=== PATIENT | male | born 1980 | race Caucasian/White ===

== ENCOUNTER 2019-08-24 01:08 | Inpatient (IN) ==
[2019-08-24] MEDS ORDERED: NALOXONE HCL 0.4 MG/ML VIAL IV PRN (01:18)
[2019-08-24] MEDS ORDERED: 0.9 % SODIUM CHLORIDE 1,000 ML IV ONE ×2 (01:19→02:31)
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
[2019-08-24 02:30] LABS: Basophils # (Auto) 0.06 K/mcL (0.00-0.30); Basophils % (Auto) 0.7 % (0.0-2.0); Eosinophils % (Auto) 2.5 % (0.0-7.0); Granulocytes % (Auto) 77.2 % (38.0-78.0); Hematocrit 37.2 % (40.1-51.0); Hemoglobin 12.8 g/dL (13.7-17.5); Lymphocytes # (Auto) 0.91 K/mcL (1.50-4.80); Lymphocytes % (Auto) 11.3 % (15.5-49.0); Mean Cell Volume 89.2 fL (80.0-100.0); Mean Corpuscular HGB Conc 34.4 g/dL (31.0-36.0); Mean Platelet Volume 9.3 fL (7.4-10.4); Monocytes # (Auto) 0.67 K/mcL (0.10-0.90); Monocytes % (Auto) 8.3 % (1.0-12.0); Platelet Count 164 K/mcL (140-440); RBC 4.17 M/mcL (4.63-6.08); Red Cell Distribution Width 12.5 % (11.5-14.5); WBC 8.1 K/mcL (4.50-11.00)
[2019-08-24 02:37] LABS: Alcohol, Blood < 10.0 mg/dL (<10); Alcohol,Blood < 0.010 gm/dl (<0.010)
[2019-08-24] MEDS ORDERED: DEXTROSE 50% 50 ML SYRINGE IV ONE (02:40)
[2019-08-24 02:42] LABS: ALT/SGPT 25 U/l (0-40); AST/SGOT 30 U/l (0-37); Albumin 3.7 gm/dL (3.2-5.2); Albumin/Globulin Ratio 1.3 (1.0-2.3); Alkaline Phosphatase 91 U/L (39-117); Bilirubin,Total 0.4 mg/dL (0.0-1.0); Blood Urea Nitrogen 11 mg/dl (6-20); Calcium 8.7 mg/dl (8.6-10.4); Carbon Dioxide 22 mmol/L (22-30); Chloride 101 mmol/L (96-108); Globulin 2.9 gm/dL (2.2-3.7); Glomerular Filtration Rate 117; Glucose 86 mg/dL (70-105)
[2019-08-24] MEDS ORDERED: DEXTROSE 10 % IN WATER 1,000 ML IV ONE (03:28)
[2019-08-24 04:32] LABS: Amphetamine Screen,Urine SUSPECT POSITIVE (NONDETECTED); Barbiturate Screen,Urine NONE DETECTED (NONDETECTED); Benzodiazepines Screen,Urine NONE DETECTED (NONDETECTED); Cannabinoid Screen,Urine SUSPECT POSITIVE (NONDETECTED); Cocaine Screen,Urine NONE DETECTED (NONDETECTED); Opiate Screen,Urine NONE DETECTED (NONDETECTED); Oxycodone, Urine Screen NONE DETECTED (NONDETECTED); Phencyclidine Screen,Urine NONE DETECTED (NONDETECTED)
[2019-08-24] MEDS ORDERED: HYDROCORTISONE SOD SUCC 100 MG VIAL IV ONE (07:12)
[2019-08-24] MEDS ORDERED: THIAMINE 100 MG in 0.9 % SODIUM CHLORIDE 50 ML IV ONE (07:24)
[2019-08-24 07:28] LABS: ALT/SGPT 31 U/l (0-40); AST/SGOT 39 U/l (0-37); Albumin 3.6 gm/dL (3.2-5.2); Albumin/Globulin Ratio 1.5 (1.0-2.3); Alkaline Phosphatase 98 U/L (39-117); Bilirubin,Total 0.6 mg/dL (0.0-1.0); Blood Urea Nitrogen 10 mg/dl (6-20); Calcium 8.3 mg/dl (8.6-10.4); Carbon Dioxide 22 mmol/L (22-30); Chloride 103 mmol/L (96-108); Creatine Kinase 272 IU/L (24-195); Globulin 2.4 gm/dL (2.2-3.7); Glomerular Filtration Rate 117; Glucose 179 mg/dL (70-105)
[2019-08-24] MEDS ORDERED: LACTATED RINGERS 1,000 ML IV ONE (07:30)
[2019-08-24] MEDS ORDERED: THIAMINE 100 MG/ML VIAL ONE (07:57)
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
--- NOTE | 2019-08-24 08:48 | Cat Scan Report ---
CLINICAL INFORMATION: Obtundation COMPARISON: None. TECHNIQUE: 2.5 mm helical slices were obtained in the skull base to vertex. Following reconstruction, axial reformatted images were reviewed at bone and parenchymal windows. The exam was performed using radiation dose optimization techniques including, but not limited to, automated exposure control, adjustment of the mA and/or kV according to patient size and use of iterative reconstruction technique. FINDINGS: The ventricles, sulci, fissures, and cisterns are normal in size and configuration. No extra-axial fluid collections are identified. The cerebrum, brainstem and cerebellum are unremarkable. There is no evidence of hemorrhage, mass effect, or edema. Bone windows show no osseous abnormality. IMPRESSION: Normal head CT without contrast. Interpreted and Authenticated by: Aristides Berumen 08/24/19
[2019-08-24] MEDS ORDERED: ONDANSETRON 4 MG ODT TABLET SL PRN (10:40)
[2019-08-24] MEDS ORDERED: POLYETHYLENE GLYCOL 3350 17 GM PACKET PO PRN (10:40)
[2019-08-24] MEDS ORDERED: ACETAMINOPHEN 325 MG TABLET PO PRN (10:40)
[2019-08-24] MEDS ORDERED: DEXTROSE 31 GM ORAL.SUSP PO PRN (10:40)
[2019-08-24] MEDS ORDERED: POTASSIUM CHLORIDE 20 MEQ PACKET PO PRN (10:40)
[2019-08-24] MEDS ORDERED: ACETAMINOPHEN 650 MG/65 ML BOTTLE IV PRN (10:40)
[2019-08-24] MEDS ORDERED: ONDANSETRON 4 MG/2 ML VIAL IV PRN (10:40)
[2019-08-24] MEDS ORDERED: MAGNESIUM SULFATE 2 GM/50 ML BAG IV PRN (10:40)
[2019-08-24] MEDS ORDERED: MELATONIN 3 MG TABLET PO PRN (10:40)
[2019-08-24] MEDS ORDERED: DEXTROSE 50% 50 ML VIAL IV PRN (10:40)
[2019-08-24] MEDS ORDERED: BISACODYL 10 MG SUPP.RECT PR PRN (10:40)
[2019-08-24] MEDS ORDERED: NOREPINEPHRINE BITARTRATE 16 MG in 0.9 % SODIUM CHLORIDE 234 ML IV PRN (10:40)
[2019-08-24] MEDS: DEXTROSE 5%-1/2NS 1,000 ML IV SCH ×3 (10:49→20:28)
[2019-08-24] MEDS: MULTIVIT,THER IRON,CA,FA & MIN 1 TABLET PO SCH (12:11)
[2019-08-24] MEDS: THIAMINE 100 MG TABLET PO SCH (12:11)
[2019-08-24] MEDS: CYANOCOBALAMIN (VITAMIN B-12) 500 MCG TABLET PO SCH ×2 (12:11→20:29)
[2019-08-24] MEDS: HEPARIN 5,000 UNIT/ML VIAL SQ SCH ×2 (12:11→20:28)
[2019-08-24] MEDS: FOLIC ACID 1 MG TABLET PO SCH (12:11)
[2019-08-24] MEDS: DOCUSATE SODIUM 100 MG CAPSULE PO SCH ×2 (12:12→20:29)
[2019-08-24] MEDS: INSULIN LISPRO 1 UNIT/0.01 ML UNIT SQ SCH ×3 (12:12→20:32)
--- NOTE | 2019-08-24 12:29 | Cat Scan Report ---
CLINICAL INFORMATION: Altered level of consciousness and chest pain COMPARISON: None. TECHNIQUE: 80 cc of Isovue-[id number] were injected intravenously, and 25 seconds later, 0.625 mm helical slices were obtained from the lung apices through the bases. Following reconstruction, 2.5 mm sagittal, coronal and axial reformations were processed and reviewed at lung, mediastinal and bone windows. 7 mm axial MIPS were also obtained to optimize pulmonary nodule detection. The exam was performed using radiation dose optimization techniques including, but not limited to, automated exposure control, adjustment of the mA and/or kV according to patient size and use of iterative reconstruction technique. FINDINGS: Pulmonary parenchymal windows show scattered small groundglass infiltrates in the anterior segment of the left upper lobe. Minimal scattered scarring and/or atelectasis noted in both posterior lower lobes. There are no effusions. The mediastinal windows of the pulmonary arteries are well opacified without evidence of embolus. Thoracic aorta contains scattered atherosclerotic plaque in the descending segment but is normal diameter. Esophagus grossly normal. There is no adenopathy in the mediastinal, hilar or axillary regions. Thyroid is unremarkable. Bones and soft tissue chest wall are within normal limits. Images of the superior abdomen show no abnormality IMPRESSION: 1. No evidence of pulmonary embolus. 2. Small patchy groundglass infiltrates the anterior segment left upper lobe suspected to be acquired pneumonia. Interpreted and Authenticated by: Aristides Berumen 08/24/19
[2019-08-24] MEDS: 0.9 % SODIUM CHLORIDE 10 ML SYRINGE IV SCH ×2 (14:27→21:46)
[2019-08-24] MEDS ORDERED: IBUPROFEN 600 MG TABLET PO PRN (20:12)
[2019-08-24] MEDS ORDERED: SENNOSIDES/DOCUSATE SODIUM 1 TAB TABLET PO SCH (21:00)
[2019-08-25] MEDS: DEXTROSE 5%-1/2NS 1,000 ML IV SCH (00:31)
[2019-08-25] MEDS: 0.9 % SODIUM CHLORIDE 10 ML SYRINGE IV SCH ×2 (05:11→12:10)
[2019-08-25 08:04] LABS: Hematocrit 38.9 % (40.1-51.0); Hemoglobin 12.8 g/dL (13.7-17.5); Mean Cell Volume 93.7 fL (80.0-100.0); Mean Corpuscular HGB Conc 32.9 g/dL (31.0-36.0); Mean Platelet Volume 9.7 fL (7.4-10.4); Platelet Count 176 K/mcL (140-440); RBC 4.15 M/mcL (4.63-6.08); Red Cell Distribution Width 12.7 % (11.5-14.5); WBC 5.6 K/mcL (4.50-11.00)
[2019-08-25 08:28] LABS: ALT/SGPT 26 U/l (0-40); AST/SGOT 26 U/l (0-37); Albumin 3.2 gm/dL (3.2-5.2); Albumin/Globulin Ratio 1.3 (1.0-2.3); Alkaline Phosphatase 83 U/L (39-117); Bilirubin,Direct < 0.2 mg/dL (0.0-0.3); Bilirubin,Total 0.3 mg/dL (0.0-1.0); Blood Urea Nitrogen 8 mg/dl (6-20); Calcium 8.5 mg/dl (8.6-10.4); Carbon Dioxide 22 mmol/L (22-30); Chloride 105 mmol/L (96-108); Globulin 2.4 gm/dL (2.2-3.7); Glomerular Filtration Rate 111; Glucose 197 mg/dL (70-105); Lactate Dehydrogenase 186 U/L (94-250); Phosphorous 2.8 mg/dL (2.7-4.5); Triglycerides 109 mg/dl (<150); Uric Acid 3.7 mg/dL (2.5-8.0)
[2019-08-25 08:36] LABS: Band Neutrophils % 1 % (0-10); Eosinophils % (Manual) 3 % (0-7); Lymphocytes % 45 % (15-49); Monocytes % (Manual) 8 % (1-12); Platelet Estimate NORMAL (NORMAL); RBC Morphology NORMAL (NORMAL); Segmented Neutrophils % 43 % (38-78)
[2019-08-25] MEDS ORDERED: LEVOFLOXACIN 750 MG/150 ML BAG IV SCH (09:00)
[2019-08-25] MEDS: INSULIN LISPRO 1 UNIT/0.01 ML UNIT SQ SCH ×2 (09:09→12:48)
[2019-08-25] MEDS: HEPARIN 5,000 UNIT/ML VIAL SQ SCH (09:13)
[2019-08-25] MEDS: MULTIVIT,THER IRON,CA,FA & MIN 1 TABLET PO SCH (09:14)
[2019-08-25] MEDS: DOCUSATE SODIUM 100 MG CAPSULE PO SCH (09:14)
[2019-08-25] MEDS: FOLIC ACID 1 MG TABLET PO SCH (09:14)
[2019-08-25] MEDS: THIAMINE 100 MG TABLET PO SCH (09:14)
[2019-08-25] MEDS: CYANOCOBALAMIN (VITAMIN B-12) 500 MCG TABLET PO SCH (09:14)
--- NOTE | 2019-08-25 09:21 | Discharge Summary ---
Medical - DS: Prov Patient information: Note initiated : 08/25/19 at 9:17 am Service Date, if different from initiated Date: [] Patient: Scot Winchester 39 y/o M admitted on 08/24/19 for Altered LOC. Chief Complaint: [] Date of admission: 08/24/19 10:32 Discharge date: 08/25/19 Consults: 08/24/19 07:03 Consult to Physician [CONS] Stat Comment: Consulting Provider: Socrates Galvan Reason For Exam: Physician to Consult Medical - DS: Meds - Discharge Medications Active and Home Medications: Home Medications Cephalexin [Keflex] 500 mg PO QID #30 cap 08/23/19 [Rx Confirmed 08/24/19 Last Taken Unknown] Insulin Lispro [Humalog] 0 unit SQ ACHS 08/23/19 [History Confirmed 08/24/19 Last Taken Unknown] Lantus 20 unit SQ BID 08/23/19 [History Confirmed 08/24/19 Last Taken Unknown] Sulfamethoxazole/Trimethoprim [Bactrim Ds] 1 tab PO BID #14 tab 08/23/19 [Rx Confirmed 08/24/19 Last Taken Unknown] Medical - DS: Hosp Hospital Course: Discharge diagnosis * Hypothermia secondary to exposure. Clinically improved with active rewarming. Euthermic now. Status post steroids/sepsis work-up/antibiotic coverage, aggressive electrolyte management and close hemodynamic monitoring in ICU. Patient back at baseline and discharging * Axillary abscess staph aureus on culture. CT chest no evidence of abscess. Continue Keflex/Bactrim * Right upper lobe infiltrate likely aspiration chemical pneumonitis. No indication for antibiotics in light of normal white count and absence of systemic signs * Costochondritis as needed NSAIDs * Acute change mental status-CT head negative. Secondary to amphetamine intoxication and hypothermia. Clinically resolved now mentation at baseline * Hypokalemia-resolved with active rewarming * Type 1 diabetes-continue home diabetic regimen Brief hospital course Mr. Winchester is a 39 year old M with a known history of type 1 diabetes and drug use who was found unresponsive and hypothermic out in snow. His initial core body temperature was less than 90. Patient was started on active rewarming while further investigations were carried out in the ER. Over the period of 5 hours patient's temperature megan to 93. Patient was unresponsive and exact circumstances of patient being found down were unknown. History is obtained from EMS. Significant to presenting history patient earlier in the morning presented with left axillary abscess and was discharged on antibiotics after the abscess spontaneously drained. Later in the evening patient was at a hotel with friend and was walking to his home when he collapsed under unclear circumstances. No further history is available. Initial tox screen positive for amphetamine, ABG 7.41/30 , potassium 3. Hospitalist service was consulted for for management of hypothermia/active rewarming. During my evaluation patient remains minimally responsive. He would answer to occasional questions. History is obtained from ER records/EMS notes. 08/25-patient responded to active rewarming and currently euthermic. Labs hemodynamic stable. CT chest unremarkable except for right upper lobe infiltrates consistent with aspiration however no indication of systemic signs precluding antibiotic use. No further drainage from left axillary abscess. No evidence of drainable abscess on CT. Will continue Keflex/Septra for additional 5 to 7 days. Discharge instructions as below Discharge diagnosis: . - Time Spent with Patient Total time spent providing and/or coordinating discharge services: Greater than 30 minutes Medical - DS: Exam - Constitutional Vitals: Vital Signs Temp Pulse Resp BP BP Pulse Ox 08/25/19 08:50 97.6 F 08/25/19 08:46 97.5 F 16 118/83 08/25/19 08:31 97.4 F 60 121/79 100 08/25/19 08:16 97.4 F 80 113/70 99 08/25/19 08:01 97.3 F 119/83 08/25/19 07:46 97.2 F 124/86 08/25/19 07:31 97.2 F 114/75 08/25/19 07:16 97.2 F 118/83 08/25/19 07:01 97.2 F 126/81 08/25/19 06:46 97.3 F 118/74 08/25/19 06:31 97.4 F 111/73 08/25/19 06:16 97.3 F 115/79 08/25/19 06:01 97.1 F 143/103 08/25/19 05:46 97.1 F 123/86 08/25/19 05:31 96.9 F L 143/88 08/25/19 05:16 96.7 F L 124/80 08/25/19 05:01 96.7 F L 115/74 08/25/19 04:46 96.7 F L 60 120/67 99 08/25/19 04:31 96.6 F L 60 106/83 98 08/25/19 04:16 96.5 F L 77 121/79 97 08/25/19 04:07 96.6 F L 68 95 08/25/19 04:01 96.6 F L 59 L 18 112/81 95 08/25/19 03:46 96.6 F L 104/71 08/25/19 03:31 96.7 F L 100/68 08/25/19 03:16 96.7 F L 100/67 08/25/19 03:01 96.7 F L 110/67 08/25/19 02:46 96.7 F L 112/63 08/25/19 02:39 100 08/25/19 02:31 96.7 F L 68 98/72 100 08/25/19 02:16 96.8 F L 63 102/63 99 08/25/19 02:01 96.9 F L 67 93/66 97 08/25/19 01:46 96.9 F L 62 91/68 100 08/25/19 01:31 97.0 F 59 L 106/72 94 08/25/19 01:16 97.0 F 112/72 08/25/19 01:01 97.0 F 72 97/61 100 08/25/19 00:46 97.0 F 76 106/65 100 08/25/19 00:31 97.1 F 63 119/68 97 08/25/19 00:16 97.1 F 71 16 110/72 100 08/25/19 00:01 97.2 F 63 107/69 100 08/24/19 23:46 97.2 F 103/62 08/24/19 23:31 97.2 F 130/70 08/24/19 23:16 97.2 F 120/70 08/24/19 23:01 96.6 F L 74 120/73 100 08/24/19 22:46 97.4 F 102/61 08/24/19 22:31 97.5 F 105/62 08/24/19 22:16 97.6 F 102/56 08/24/19 22:01 97.7 F 109/58 08/24/19 21:46 97.8 F 85 113/68 99 08/24/19 21:31 97.8 F 75 123/65 99 08/24/19 21:16 97.9 F 90 112/62 100 08/24/19 21:01 98.1 F 82 107/66 98 08/24/19 20:50 98.1 F 80 104/68 99 08/24/19 20:34 98.2 F 80 129/107 98 08/24/19 20:01 98.3 F 119/73 08/24/19 19:46 98.3 F 125/81 08/24/19 19:41 98 08/24/19 19:31 98.2 F 120/75 08/24/19 19:16 98.1 F 91 H 124/71 100 08/24/19 19:01 98.0 F 89 124/73 97 08/24/19 18:46 97.8 F 94 H 120/79 100 08/24/19 18:31 97.6 F 91 H 128/76 100 08/24/19 18:16 97.4 F 125/87 08/24/19 18:01 97.3 F 128/74 08/24/19 16:25 97.1 F 79 20 105/62 97 08/24/19 16:16 97.0 F 80 103/59 98 08/24/19 16:01 96.9 F L 105/62 08/24/19 15:46 96.8 F L 116/73 08/24/19 15:31 96.7 F L 92/68 08/24/19 15:16 96.7 F L 105/72 08/24/19 15:01 96.8 F L 20 104/66 98 08/24/19 14:46 96.9 F L 107/63 08/24/19 14:31 97.1 F 111/59 08/24/19 14:20 97.1 F 91/72 08/24/19 14:18 97.1 F 109/63 08/24/19 13:01 97.1 F 128/87 08/24/19 12:56 97.1 F 87 129/68 96 08/24/19 10:41 96.2 F L 74 12 112/77 99 08/24/19 10:32 97.1 F 20 119/65 97 08/24/19 10:16 96.2 F L 74 12 112/77 99 08/24/19 10:01 96.3 F L 74 12 111/76 97 08/24/19 09:46 96.2 F L 75 21 119/86 96 08/24/19 09:31 96.1 F L 70 11 L 122/88 100 Intake and Output 08/24/19 08/25/19 08/25/19 21:59 05:59 13:59 Intake Total 1545 2400 Output Total 575 Balance 1545 1825 [place]: IV 1065 2000 Dextrose 10%-Water IV Solution 1000 1,000 ml @ 75 mls/hr IV . [id number] Rx#:[id number] Dextrose 5%-1/2Ns IV Solution 1 1000 1000 ,000 ml @ 150 mls/hr IV .[id number] [facility] Rx#:[id number] Oral 480 400 Output: Urine Catheter Amount 575 Other: Meal Dinner Percent of Meal Consumed 100% Feeding Ability Independent Urine Appearance Uretheral (Cross) Clear Clear Urine Color Uretheral (Cross) Dark Yellow Straw Straw Weight 214 lb 4.8 oz Medical - DS: Data Labs on day of discharge: Labs from last 24 hours 08/25/19 08/25/19 05:46 05:46 WBC 5.6 RBC 4.15 L Hgb 12.8 L Hct 38.9 L MCV 93.7 MCH 30.8 MCHC 32.9 RDW 12.7 Plt Count 176 MPV 9.7 Total Counted 100 Seg Neutrophils % 43 Band Neutrophils % 1 Lymphocytes % 45 Monocytes % (Manual) 8 Eosinophils % (Manual) 3 Platelet Estimate Normal RBC Morphology Normal Sodium 138 Potassium 4.0 Chloride 105 Carbon Dioxide 22 Anion Gap 11.0 BUN 8 Creatinine 0.8 GFR Calculation 111 Glucose 197 H Uric Acid 3.7 Calcium 8.5 L Phosphorus 2.8 Magnesium 1.9 Total Bilirubin 0.3 Direct Bilirubin < 0.2 GGT 64 H AST 26 ALT 26 Alkaline Phosphatase 83 Lactate Dehydrogenase 186 Total Protein 5.6 L Albumin 3.2 Globulin 2.4 Albumin/Globulin Ratio 1.3 Triglycerides 109 Medical - DS: A/P - Patient/Caregiver Discharge Instructions Activity: increase activity as tolerated Diet: Consistent Carbohydrate Additional Instructions: Refrain from substance abuse Continue antibiotic for 7 days Follow primary care physician 5 to 7 days - Follow up Plan Disposition: Home, Self-Care Prognosis: Fair Rehab Potential: Fair I certify that the patient requires SNF services: No Overall status at discharge: patient is progressing back to baseline Medical - DS: Qual - VTE Deep Vein Thrombosis/Pulmonary Embolism Present on Admission: No
[2019-08-28 11:17] LABS: Cannabinoid Confirmation POSITIVE (N)
== END 2019-08-25 13:47 | disposition home or self-care (01) | DRG 922 ==
LOC: ED 01:08 → ICU 10:32
PROVIDERS: ADMIT Internal Medicine; ATTEND Internal Medicine

== ENCOUNTER 2020-12-01 22:00 | Inpatient (IN) ==
--- NOTE | 2020-12-01 22:20 | Emergency Department Note ---
Back Pain HPI General Chief Complaint: Back Pain/Injury Stated Complaint: back pain Time Seen by Provider: 12/01/20 22:12 Source: patient Limitations: no limitations History of Present Illness HPI Narrative: Narrative: Patient is a 40-year-old male who is a type 1 insulin-dependent diabetic presents with hyperglycemia, dehydration, dysuria, flank pain and also right shoulder pain. He denies any history of IV drug abuse. Patient denies any fevers but reports that overall he is having dysuria and right sided flank pain. Patient denies any midline back pain, denies any bowel dysfunction. Patient reports some redness to his Penis. Denies any testicular pain. Patient denies any other complaints. Related Data Home Medications Medication Instructions Recorded Confirmed No Known Home Meds 11/30/20 12/01/20 Allergies Allergy/AdvReac Type Severity Reaction Status Date / Time No Known Drug Allergies Allergy Unknown Verified 11/30/20 16:53 [NO KNOWN DRUG ALLERGIES] Review of Systems ROS ROS Narrative: Narrative: All systems ED: reviewed and negative except as stated. PFSH Narrative Patient History Narrative: Narrative: Medical/Surgical/Family History All Active Problems Acute shoulder pain (Acute) Uncontrolled type I diabetes mellitus (Acute) Acute hyponatremia (Acute) Balanitis (Acute) Flank pain (Acute) Hypothermia (Acute) Hypoglycemia (Acute) Hypokalemia (Acute) Obtundation (Acute) Anemia (Acute) Diabetes mellitus type 1 (Chronic) Abscess of skin or subcutaneous tissue (Acute) Costochondritis (Acute) Medical History Diabetes mellitus type 1 Flank pain Lumbar radiculopathy Social History Smoking Status: Current every day smoker Exam Narrative Narrative: Narrative: General Limitations: no limitations General appearance: Present alert and other (ill appearing, non toxic and non septic appearing) Head Head: Present atraumatic and normocephalic Eye Eye: Present normal appearance, PERRL and EOMI ENT ENT: Present normal exam, normal oropharynx and mucous membranes moist Neck Neck: Present normal inspection, full ROM and trachea midline Chest Chest: Present normal inspection and symmetric chest wall rise Respiratory Respiratory: Present normal lung sounds bilaterally Cardiovascular Cardiovascular: Present normal rhythm and tachycardia Adbominal Abdominal: Present soft, tenderness and normal bowel sounds; Absent guarding, rebound and organomegaly Expanded : Present erythema, balanitis and other (Erythema, no purulent discharge testicles descended bilaterally, nontender, no crepitus no signs of Heraclio's gangrene. No inguinal lymphadenopathy no hernias appreciated no vesicles, no lesions no ulcers) Extremities Extremities: Present normal inspection and full ROM; Absent tenderness Back Back: Present normal inspection, full ROM, CVA tenderness (R) and other (No midline tenderness of the CTLS spine. No midline erythema of the midline CTLS spine. ) Neurological Neurological: Present alert, oriented X3, CN II-XII intact, normal gait, motor sensory deficit and reflexes normal Psychiatric Psychiatric: Present normal affect Skin Skin: Present warm (WNL); Absent rash Course Course Course Narrative: Preliminary interpretation of x-ray of the right shoulder shows no acute process. Final interpretation per radiology. CT scan of the abdomen pelvis shows no acute process. CT scan abdomen pelvis shows some mild bladder wall thickening possibly cystitis. Otherwise there is also some nonobstructing renal calculi. EKG shows no STEMI. The patient is noted to be hyperglycemic but not acidotic, pseudohyponatremia present as well. Corrected sodium is around 130. I spoke with the hospitalist, Dr. Mckenzie who graciously agreed to accept this patient. Basic facilitated admission orders placed as requested by hospitalist. Patient updated and agreeable to admission. Vital Signs Vital signs: Vital Signs Temperature 99.0 F 12/01/20 22:00 Pulse Rate 122 H 12/01/20 22:00 Respiratory Rate 18 12/01/20 22:00 Blood Pressure 162/109 12/01/20 22:00 Pulse Oximetry (%) 91 12/01/20 22:00 Temperature 99.9 F H 12/02/20 01:08 Pulse Rate 117 H 12/02/20 01:08 Respiratory Rate 20 12/02/20 01:08 Blood Pressure 153/82 12/02/20 01:08 Pulse Oximetry (%) 96 12/02/20 01:08 MDM MDM Narrative Medical decision making narrative: Narrative: Also in the DDX is epidural abscess, septic joint, there is no midline ttp, denies IVDA, no leukocytosis, afebrile. Preliminary interpretation of x-ray of the right shoulder shows no acute process. Final interpretation per radiology. CT scan of the abdomen pelvis shows no acute process. CT scan abdomen pelvis shows some mild bladder wall thickening possibly cystitis. Otherwise there is also some nonobstructing renal calculi. EKG shows no STEMI. Unable to get MRI in the emergency department. The patient is noted to be hyperglycemic but not acidotic it is pseudohyponatremia as well. Corrected sodium is around 130. I spoke with the hospitalist, Dr. Mckenzie who graciously agreed to accept this patient.Given the patient's history he was treated with 2 L of IV fluids as well as empirically with 2 g of IV Rocephin and 10 Units of regular insulin. Lab Data Result diagrams: 12/01/20 22:46 12/01/20 22:46 Labs: Lab Results 12/01/20 12/01/20 12/01/20 Range/Units 22:46 22:46 22:46 WBC 10.5 (4.5-11.0) K/mcL RBC 4.74 (4.50-5.90) M/mcL Hgb 14.7 (13.5-16.5) g/dL Hct 43.3 (41.0-55.0) % MCV 91.4 (80.0-100.0) fL MCH 31.0 (26.0-34.0) pg MCHC 33.9 (31.0-36.0) g/dL RDW 11.6 (11.5-14.5) % Plt Count 168 (140-440) K/mcL MPV 10.0 (7.4-10.4) fL Neut % (Auto) 81.9 H (38.0-78.0) % Lymph % (Auto) 10.3 L (15.0-49.0) % Wilkinson % (Auto) 6.5 (1.0-12.0) % Eos % (Auto) 0.8 (0.0-7.0) % Baso % (Auto) 0.5 (0.0-2.0) % Lymph # (Auto) 1.08 L (1.50-4.80) K/mcL Wilkinson # (Auto) 0.68 (0.10-0.90) K/mcL Eos # (Auto) 0.08 (0.00-0.70) K/mcL Baso # (Auto) 0.05 (0.00-0.20) K/mcL Absolute Neutrophils 8.61 H (1.80-8.00) K/mcL PT 15.2 H (11.9-14.5) sec INR 1.2 H (0.9-1.1) ABG Methemoglobin (0.4-1.5) % VBG pH (7.32-7.42) U VBG pCO2 (41.0-51.0) mmHg VBG pO2 (25.0-40.0) mmHg VBG HCO3 (24.0-28.0) mmol/L VBG Total CO2 (25.0-29.0) mmol/L VBG O2 Saturation (40.0-70.0) % VBG Base Excess (-2-3) VBG Lactic Acid (0.5-2.0) mmol/L Carboxyhemoglobin (0.0-1.5) % THgb Total Hemoglobin (13.5-16.5) gm/Dl Sodium 123 L (133-145) mmol/L Potassium 4.2 (3.3-5.1) mmol/L Chloride 84 L (96-108) mmol/L Carbon Dioxide 30 (22-30) mmol/L Anion Gap 9.0 (8.0-16.0) BUN 7 (6-20) mg/dL Creatinine 0.9 (0.7-1.2) mg/dL GFR Calculation 105 Glucose 518 H* (70-105) mg/dL Calcium 9.3 (8.6-10.4) mg/dL Phosphorus (2.5-4.5) mg/dL Magnesium 2.1 (1.6-2.5) mg/dL Total Bilirubin 1.0 (0.1-1.0) mg/dL AST 26 (<40) U/L ALT 54 H (<40) U/L Alkaline Phosphatase 163 H (39-117) U/L Troponin T (<0.03) ng/mL Total Protein 7.4 (5.9-8.4) gm/dL Albumin 3.7 (3.2-5.2) gm/dL Globulin 3.7 (2.2-3.7) gm/dL Albumin/Globulin Ratio 1.0 (1.0-2.3) Lipase 14 (7-60) U/L Beta-Hydroxybutyrate 0.66 H (<0.27) mmol/L Urine Color Urine Appearance (Clear) Urine pH (5.0-9.0) Ur Specific [place] (1.000-1.035) Urine Protein (Negative) mg/dL Urine Glucose (UA) (Negative) mg/dL Urine Ketones (Negative) mg/dL Urine Occult Blood (Negative) mg/dL Urine Nitrate (Negative) Urine Bilirubin (Negative) mg/dL Urine Urobilinogen mg/dL Ur Leukocyte Esterase (Negative) /ug Urine RBC (0-3) /hpf Urine WBC (0-4) /hpf Ur Squamous Epith Cells (0-4) /hpf Urine Bacteria (0) /hpf Ur Culture Indicated? Urine Opiates Screen Ur Opiates Confirm Ur Oxycodone Screen Urine Methadone Screen Ur Methadone Confirm Ur Barbiturates Screen Ur Barbiturate Confirm Ur Phencyclidine Scrn Urine PCP Confirm Ur Amphetamines Screen U Benzodiazepines Scrn U Benzodiazepine Confm Urine Cocaine Screen Urine Cocaine Confirm U Marijuana (THC) Screen Ethyl Alcohol (<0.010) gm/dL 12/01/20 12/01/20 12/01/20 Range/Units 22:46 22:46 22:46 WBC (4.5-11.0) K/mcL RBC (4.50-5.90) M/mcL Hgb (13.5-16.5) g/dL Hct (41.0-55.0) % MCV (80.0-100.0) fL MCH (26.0-34.0) pg MCHC (31.0-36.0) g/dL RDW (11.5-14.5) % Plt Count (140-440) K/mcL MPV (7.4-10.4) fL Neut % (Auto) (38.0-78.0) % Lymph % (Auto) (15.0-49.0) % Wilkinson % (Auto) (1.0-12.0) % Eos % (Auto) (0.0-7.0) % Baso % (Auto) (0.0-2.0) % Lymph # (Auto) (1.50-4.80) K/mcL Wilkinson # (Auto) (0.10-0.90) K/mcL Eos # (Auto) (0.00-0.70) K/mcL Baso # (Auto) (0.00-0.20) K/mcL Absolute Neutrophils (1.80-8.00) K/mcL PT (11.9-14.5) sec INR (0.9-1.1) ABG Methemoglobin 0.3 L (0.4-1.5) % VBG pH 7.44 H (7.32-7.42) U VBG pCO2 47.6 (41.0-51.0) mmHg VBG pO2 26.4 (25.0-40.0) mmHg VBG HCO3 31.4 H (24.0-28.0) mmol/L VBG Total CO2 32.8 H (25.0-29.0) mmol/L VBG O2 Saturation 49.6 (40.0-70.0) % VBG Base Excess 6 H (-2-3) VBG Lactic Acid (0.5-2.0) mmol/L Carboxyhemoglobin 7.8 H (0.0-1.5) % THgb Total Hemoglobin 14.8 (13.5-16.5) gm/Dl Sodium (133-145) mmol/L Potassium (3.3-5.1) mmol/L Chloride (96-108) mmol/L Carbon Dioxide (22-30) mmol/L Anion Gap (8.0-16.0) BUN (6-20) mg/dL Creatinine (0.7-1.2) mg/dL GFR Calculation Glucose (70-105) mg/dL Calcium (8.6-10.4) mg/dL Phosphorus 2.5 (2.5-4.5) mg/dL Magnesium (1.6-2.5) mg/dL Total Bilirubin (0.1-1.0) mg/dL AST (<40) U/L ALT (<40) U/L Alkaline Phosphatase (39-117) U/L Troponin T (<0.03) ng/mL Total Protein (5.9-8.4) gm/dL Albumin (3.2-5.2) gm/dL Globulin (2.2-3.7) gm/dL Albumin/Globulin Ratio (1.0-2.3) Lipase (7-60) U/L Beta-Hydroxybutyrate (<0.27) mmol/L Urine Color Urine Appearance (Clear) Urine pH (5.0-9.0) Ur Specific [place] (1.000-1.035) Urine Protein (Negative) mg/dL Urine Glucose (UA) (Negative) mg/dL Urine Ketones (Negative) mg/dL Urine Occult Blood (Negative) mg/dL Urine Nitrate (Negative) Urine Bilirubin (Negative) mg/dL Urine Urobilinogen mg/dL Ur Leukocyte Esterase (Negative) /ug Urine RBC (0-3) /hpf Urine WBC (0-4) /hpf Ur Squamous Epith Cells (0-4) /hpf Urine Bacteria (0) /hpf Ur Culture Indicated? Urine Opiates Screen None detected Ur Opiates Confirm TNP Ur Oxycodone Screen None detected Urine Methadone Screen None detected Ur Methadone Confirm TNP Ur Barbiturates Screen None detected Ur Barbiturate Confirm TNP Ur Phencyclidine Scrn None detected Urine PCP Confirm TNP Ur Amphetamines Screen Suspect positive A U Benzodiazepines Scrn None detected U Benzodiazepine Confm TNP Urine Cocaine Screen None detected Urine Cocaine Confirm TNP U Marijuana (THC) Screen Suspect positive A Ethyl Alcohol (<0.010) gm/dL 12/01/20 12/01/20 12/01/20 Range/Units 22:46 22:46 22:46 WBC (4.5-11.0) K/mcL RBC (4.50-5.90) M/mcL Hgb (13.5-16.5) g/dL Hct (41.0-55.0) % MCV (80.0-100.0) fL MCH (26.0-34.0) pg MCHC (31.0-36.0) g/dL RDW (11.5-14.5) % Plt Count (140-440) K/mcL MPV (7.4-10.4) fL Neut % (Auto) (38.0-78.0) % Lymph % (Auto) (15.0-49.0) % Wilkinson % (Auto) (1.0-12.0) % Eos % (Auto) (0.0-7.0) % Baso % (Auto) (0.0-2.0) % Lymph # (Auto) (1.50-4.80) K/mcL [place] # (Auto) (0.10-0.90) K/mcL Eos # (Auto) (0.00-0.70) K/mcL Baso # (Auto) (0.00-0.20) K/mcL Absolute Neutrophils (1.80-8.00) K/mcL PT (11.9-14.5) sec INR (0.9-1.1) ABG Methemoglobin (0.4-1.5) % VBG pH (7.32-7.42) U VBG pCO2 (41.0-51.0) mmHg VBG pO2 (25.0-40.0) mmHg VBG HCO3 (24.0-28.0) mmol/L VBG Total CO2 (25.0-29.0) mmol/L VBG O2 Saturation (40.0-70.0) % VBG Base Excess (-2-3) VBG Lactic Acid 1.7 (0.5-2.0) mmol/L Carboxyhemoglobin (0.0-1.5) % THgb Total Hemoglobin (13.5-16.5) gm/Dl Sodium (133-145) mmol/L Potassium (3.3-5.1) mmol/L Chloride (96-108) mmol/L Carbon Dioxide (22-30) mmol/L Anion Gap (8.0-16.0) BUN (6-20) mg/dL Creatinine (0.7-1.2) mg/dL GFR Calculation Glucose (70-105) mg/dL Calcium (8.6-10.4) mg/dL Phosphorus (2.5-4.5) mg/dL Magnesium (1.6-2.5) mg/dL Total Bilirubin (0.1-1.0) mg/dL AST (<40) U/L ALT (<40) U/L Alkaline Phosphatase (39-117) U/L Troponin T < 0.01 (<0.03) ng/mL Total Protein (5.9-8.4) gm/dL Albumin (3.2-5.2) gm/dL Globulin (2.2-3.7) gm/dL Albumin/Globulin Ratio (1.0-2.3) Lipase (7-60) U/L Beta-Hydroxybutyrate (<0.27) mmol/L Urine Color Urine Appearance (Clear) Urine pH (5.0-9.0) Ur Specific [place] (1.000-1.035) Urine Protein (Negative) mg/dL Urine Glucose (UA) (Negative) mg/dL Urine Ketones (Negative) mg/dL Urine Occult Blood (Negative) mg/dL Urine Nitrate (Negative) Urine Bilirubin (Negative) mg/dL Urine Urobilinogen mg/dL Ur Leukocyte Esterase (Negative) /ug Urine RBC (0-3) /hpf Urine WBC (0-4) /hpf Ur Squamous Epith Cells (0-4) /hpf Urine Bacteria (0) /hpf Ur Culture Indicated? Urine Opiates Screen Ur Opiates Confirm Ur Oxycodone Screen Urine Methadone Screen Ur Methadone Confirm Ur Barbiturates Screen Ur Barbiturate Confirm Ur Phencyclidine Scrn Urine PCP Confirm Ur Amphetamines Screen U Benzodiazepines Scrn U Benzodiazepine Confm Urine Cocaine Screen Urine Cocaine Confirm U Marijuana (THC) Screen Ethyl Alcohol < 0.010 (<0.010) gm/dL 12/01/20 Range/Units 22:46 WBC (4.5-11.0) K/mcL RBC (4.50-5.90) M/mcL Hgb (13.5-16.5) g/dL Hct (41.0-55.0) % MCV (80.0-100.0) fL MCH (26.0-34.0) pg MCHC (31.0-36.0) g/dL RDW (11.5-14.5) % Plt Count (140-440) K/mcL MPV (7.4-10.4) fL Neut % (Auto) (38.0-78.0) % Lymph % (Auto) (15.0-49.0) % [place] % (Auto) (1.0-12.0) % Eos % (Auto) (0.0-7.0) % Baso % (Auto) (0.0-2.0) % Lymph # (Auto) (1.50-4.80) K/mcL [place] # (Auto) (0.10-0.90) K/mcL Eos # (Auto) (0.00-0.70) K/mcL Baso # (Auto) (0.00-0.20) K/mcL Absolute Neutrophils (1.80-8.00) K/mcL PT (11.9-14.5) sec INR (0.9-1.1) ABG Methemoglobin (0.4-1.5) % VBG pH (7.32-7.42) U VBG pCO2 (41.0-51.0) mmHg VBG pO2 (25.0-40.0) mmHg VBG HCO3 (24.0-28.0) mmol/L VBG Total CO2 (25.0-29.0) mmol/L VBG O2 Saturation (40.0-70.0) % VBG Base Excess (-2-3) VBG Lactic Acid (0.5-2.0) mmol/L Carboxyhemoglobin (0.0-1.5) % THgb Total Hemoglobin (13.5-16.5) gm/Dl Sodium (133-145) mmol/L Potassium (3.3-5.1) mmol/L Chloride (96-108) mmol/L Carbon Dioxide (22-30) mmol/L Anion Gap (8.0-16.0) BUN (6-20) mg/dL Creatinine (0.7-1.2) mg/dL GFR Calculation Glucose (70-105) mg/dL Calcium (8.6-10.4) mg/dL Phosphorus (2.5-4.5) mg/dL Magnesium (1.6-2.5) mg/dL Total Bilirubin (0.1-1.0) mg/dL AST (<40) U/L ALT (<40) U/L Alkaline Phosphatase (39-117) U/L Troponin T (<0.03) ng/mL Total Protein (5.9-8.4) gm/dL Albumin (3.2-5.2) gm/dL Globulin (2.2-3.7) gm/dL Albumin/Globulin Ratio (1.0-2.3) Lipase (7-60) U/L Beta-Hydroxybutyrate (<0.27) mmol/L Urine Color Yellow Urine Appearance Clear (Clear) Urine pH 7.0 (5.0-9.0) Ur Specific [place] 1.026 (1.000-1.035) Urine Protein Negative (Negative) mg/dL Urine Glucose (UA) >=500 A (Negative) mg/dL Urine Ketones 5 A (Negative) mg/dL Urine Occult Blood 0.03 (Negative) mg/dL Urine Nitrate Negative (Negative) Urine Bilirubin Negative (Negative) mg/dL Urine Urobilinogen Negative mg/dL Ur Leukocyte Esterase Negative (Negative) /ug Urine RBC 0 (0-3) /hpf Urine WBC 5 H (0-4) /hpf Ur Squamous Epith Cells 0 (0-4) /hpf Urine Bacteria Mod A (0) /hpf Ur Culture Indicated? Yes Urine Opiates Screen Ur Opiates Confirm Ur Oxycodone Screen Urine Methadone Screen Ur Methadone Confirm Ur Barbiturates Screen Ur Barbiturate Confirm Ur Phencyclidine Scrn Urine PCP Confirm Ur Amphetamines Screen U Benzodiazepines Scrn U Benzodiazepine Confm Urine Cocaine Screen Urine Cocaine Confirm U Marijuana (THC) Screen Ethyl Alcohol (<0.010) gm/dL ED POC Tests ED POC Tests: DOM - SARS Antigen Negative CC TIME Critical Care Time Critical Care Time: Yes Total Critical Care Time: 45 Discharge Plan Patient/Caregiver Discharge Instructions Pt seen by PECAN HULLER/PA only: No Clinical Impression: Acute hyponatremia, Balanitis Acute shoulder pain Qualifiers: Laterality: right Qualified Code(s): M25.511 - Pain in right shoulder Uncontrolled type I diabetes mellitus Qualifiers: Glycemic state: with hyperglycemia Qualified Code(s): E10.65 - Type 1 diabetes mellitus with hyperglycemia Diabetes mellitus type 1 Qualifiers: Diabetes mellitus complication status: with hyperglycemia Qualified Code(s): E10.65 - Type 1 diabetes mellitus with hyperglycemia Patient Disposition: Xfer As Inpt ([facility]) Condition: Serious Discharge Date/Time: 12/02/20 01:03 Discharge Location: [facility]
[2020-12-01] MEDS ORDERED: 0.9 % SODIUM CHLORIDE 1,000 ML IV SCH ×2 (22:30→22:45)
[2020-12-01] MEDS ORDERED: cefTRIAXone 2 GM in DEXTROSE 5% IN WATER 50 ML IV ONE (22:43)
[2020-12-01 23:10] LABS: ABG Methemoglobin 0.3 % (0.4-1.5); Total Hemoglobin 14.8 gm/Dl (13.5-16.5); VBG Base Excess 6 (-2-3); VBG HCO3 31.4 mmol/L (24.0-28.0); VBG Oxygen Saturation 49.6 % (40.0-70.0); VBG PCO2 47.6 mmHg (41.0-51.0); VBG PH 7.44 U (7.32-7.42); VBG PO2 26.4 mmHg (25.0-40.0); VBG Total CO2 32.8 mmol/L (25.0-29.0)
[2020-12-01 23:14] LABS: Basophils # (Auto) 0.05 K/mcL (0.00-0.20); Basophils % (Auto) 0.5 % (0.0-2.0); Eosinophils # (Auto) 0.08 K/mcL (0.00-0.70); Eosinophils % (Auto) 0.8 % (0.0-7.0); Hematocrit 43.3 % (41.0-55.0); Hemoglobin 14.7 g/dL (13.5-16.5); Lymphocytes # (Auto) 1.08 K/mcL (1.50-4.80); Lymphocytes % (Auto) 10.3 % (15.0-49.0); Mean Cell Volume 91.4 fL (80.0-100.0); Mean Corpuscular HGB Conc 33.9 g/dL (31.0-36.0); Monocytes # (Auto) 0.68 K/mcL (0.10-0.90); Monocytes % (Auto) 6.5 % (1.0-12.0); Neutrophils % (Auto) 81.9 % (38.0-78.0); Platelet Count 168 K/mcL (140-440); RBC 4.74 M/mcL (4.50-5.90); Red Cell Distribution Width 11.6 % (11.5-14.5); WBC 10.5 K/mcL (4.5-11.0)
[2020-12-01 23:24] LABS: INR 1.2 (0.9-1.1); Prothrombin Time 15.2 sec (11.9-14.5)
[2020-12-01 23:29] LABS: Alcohol, Blood < 10.0 mg/dL; Alcohol,Blood < 0.010 gm/dL (<0.010)
[2020-12-01 23:31] LABS: Beta Hydroxybutyrate 0.66 mmol/L (<0.27)
[2020-12-01 23:34] LABS: ALT/SGPT 54 U/L (<40); AST/SGOT 26 U/L (<40); Albumin 3.7 gm/dL (3.2-5.2); Alkaline Phosphatase 163 U/L (39-117); Blood Urea Nitrogen 7 mg/dL (6-20); Calcium 9.3 mg/dL (8.6-10.4); Carbon Dioxide 30 mmol/L (22-30); Chloride 84 mmol/L (96-108); Globulin 3.7 gm/dL (2.2-3.7); Glomerular Filtration Rate 105; Glucose 518 mg/dL (70-105)
[2020-12-01] MEDS ORDERED: morphine 4 MG/ML VIAL IV ONE (23:42)
[2020-12-01] MEDS ORDERED: NICOTINE 21 MG PATCH TOPICAL ONE (23:42)
[2020-12-02] MEDS ORDERED: ONDANSETRON 4 MG/2 ML VIAL IV PRN ×2 (00:03→07:43)
[2020-12-02] MEDS ORDERED: ACETAMINOPHEN 325 MG TABLET PO PRN ×2 (00:03→07:43)
[2020-12-02] MEDS ORDERED: DEXTROSE 50% 50 ML VIAL IV PRN (00:08)
[2020-12-02] MEDS ORDERED: DEXTROSE 31 GM ORAL.SUSP PO PRN (00:08)
[2020-12-02] MEDS ORDERED: 0.9 % SODIUM CHLORIDE 1,000 ML IV SCH (00:10)
[2020-12-02] MEDS ORDERED: INSULIN REGULAR, HUMAN 1 UNIT/0.01 ML UNIT IV ONE (00:15)
[2020-12-02] MEDS: 0.9 % SODIUM CHLORIDE 1,000 ML IV SCH ×4 (00:27→21:05)
[2020-12-02 00:33] LABS: Appearance,Urine CLEAR (Clear); Bacteria,Urine Mod /hpf (0); Bilirubin,Urine Negative (Negative); Color,Urine YELLOW; Culture Indicated,Urine Yes; Glucose,Urine (UA) >=500 mg/dL (Negative); Ketones,Urine 5 mg/dL (Negative); Leukocyte Esterase,Urine Negative /ug (Negative); Nitrate,Urine Negative (Negative); Protein,Urine Negative (Negative); Specific Gravity,Urine 1.026 (1.000-1.035); Urine Blood 0.03 mg/dL (Negative); Urine RBC 0 /hpf (0-3); Urine Squamous Epithelial Cell 0 /hpf (0-4); Urine WBC 5 /hpf (0-4); Urobilinogen,Urine Negative
--- NOTE | 2020-12-02 00:58 | Emergency Department Note ---
HPI General Chief complaint: Back Pain/Injury Stated complaint: back pain Time Seen by Provider: 12/01/20 22:12 Source: patient Mode of arrival: EMS Limitations: no limitations History of Present Illness HPI Narrative: Narrative:Patient is a 40-year-old male who presents with hyperglycemia and body aches and dehydration. Is also complaining of dysuria and flank pain right side. Also complaining of erythema to his penis as well. Patient denies fevers chills or night sweats. Patient denies any history of IV drug abuse. Patient denies any headache or neck pain. Denies any history of gonorrhea or chlamydia or any STIs. Related Data Home Medications Medication Instructions Recorded Confirmed No Known Home Meds 11/30/20 12/01/20 Allergies Allergy/AdvReac Type Severity Reaction Status Date / Time No Known Drug Allergies Allergy Unknown Verified 11/30/20 16:53 [NO KNOWN DRUG ALLERGIES] Review of Systems ROS ROS Narrative: Narrative: All systems ED: reviewed and negative except as stated. [facility] Narrative Patient History Narrative: Narrative: Medical/Surgical/Family History All Active Problems Acute shoulder pain (Acute) Uncontrolled type I diabetes mellitus (Acute) Acute hyponatremia (Acute) Balanitis (Acute) Flank pain (Acute) Hypothermia (Acute) Hypoglycemia (Acute) Hypokalemia (Acute) Obtundation (Acute) Anemia (Acute) Diabetes mellitus type 1 (Chronic) Abscess of skin or subcutaneous tissue (Acute) Costochondritis (Acute) Medical History Diabetes mellitus type 1 Flank pain Lumbar radiculopathy Social History Smoking Status: Current every day smoker Exam Narrative Narrative: Narrative: General Limitations: no limitations General appearance: Present alert and other (Ill-appearing but nontoxic and nons eptic appearing) Head Head: Present atraumatic and normocephalic Eye Eye: Present normal appearance, PERRL and EOMI ENT ENT: Present normal exam, normal oropharynx and mucous membranes moist Neck Neck: Present normal inspection, full ROM and trachea midline Chest Chest: Present normal inspection and symmetric chest wall rise Respiratory Respiratory: Present normal lung sounds bilaterally Cardiovascular Cardiovascular: Present regular rate and normal rhythm Adbominal Abdominal: Present soft and normal bowel sounds; Absent tenderness, guarding, rebound and organomegaly Expanded : Present erythema, balanitis and other (Testicles are descended bilaterally there is diffuse erythema to the glans, no urethral discharge no inguinal lymphadenopathy no vesicles, no lesions, no ulcers no hernias appreciated no cre pitus no fluctuance no signs of Heraclio's gangrene.) Extremities Extremities: Present normal inspection and full ROM; Absent tenderness Expanded Upper Extremity Shoulder: Present normal inspection and tenderness; Absent swelling, laceration, ecchymosis, deformity, crepitus, dislocation, erythema and tenderness over AC joint Back Back: Present normal inspection and full ROM; Absent tenderness Neurological Neurological: Present alert, oriented X3, CN II-XII intact, normal gait, motor sensory deficit and reflexes normal Psychiatric Psychiatric: Present normal affect Skin Skin: Present warm (WNL); Absent rash Course Course Course Narrative: I Spoke with the hospitalist, Who has graciously agreed to admit this patient.. Patient with history of 2 L of IV fluids, empirically treated with 2 g of Rocephin, as well as 10 units of insulin. Patient will be admitted to the hospitalist. EKG shows no STEMI. Vital Signs Vital signs: Vital Signs Temperature 99.0 F 12/01/20 22:00 Pulse Rate 122 H 12/01/20 22:00 Respiratory Rate 18 12/01/20 22:00 Blood Pressure 162/109 12/01/20 22:00 Pulse Oximetry (%) 91 12/01/20 22:00 Temperature 99.0 F 12/01/20 22:00 Pulse Rate 113 H 12/02/20 00:46 Respiratory Rate 18 12/01/20 22:00 Blood Pressure 161/100 12/02/20 00:46 Pulse Oximetry (%) 92 12/02/20 00:46 MDM MDM Narrative Medical decision making narrative: Narrative: Lab Data Result diagrams: 12/01/20 22:46 12/01/20 22:46 Labs: Lab Results 12/01/20 12/01/20 12/01/20 Range/Units 22:46 22:46 22:46 WBC 10.5 (4.5-11.0) K/mcL RBC 4.74 (4.50-5.90) M/mcL Hgb 14.7 (13.5-16.5) g/dL Hct 43.3 (41.0-55.0) % MCV 91.4 (80.0-100.0) fL MCH 31.0 (26.0-34.0) pg MCHC 33.9 (31.0-36.0) g/dL RDW 11.6 (11.5-14.5) % Plt Count 168 (140-440) K/mcL MPV 10.0 (7.4-10.4) fL Neut % (Auto) 81.9 H (38.0-78.0) % Lymph % (Auto) 10.3 L (15.0-49.0) % [place] % (Auto) 6.5 (1.0-12.0) % Eos % (Auto) 0.8 (0.0-7.0) % Baso % (Auto) 0.5 (0.0-2.0) % Lymph # (Auto) 1.08 L (1.50-4.80) K/mcL [place] # (Auto) 0.68 (0.10-0.90) K/mcL Eos # (Auto) 0.08 (0.00-0.70) K/mcL Baso # (Auto) 0.05 (0.00-0.20) K/mcL Absolute Neutrophils 8.61 H (1.80-8.00) K/mcL PT 15.2 H (11.9-14.5) sec INR 1.2 H (0.9-1.1) ABG Methemoglobin (0.4-1.5) % VBG pH (7.32-7.42) U VBG pCO2 (41.0-51.0) mmHg VBG pO2 (25.0-40.0) mmHg VBG HCO3 (24.0-28.0) mmol/L VBG Total CO2 (25.0-29.0) mmol/L VBG O2 Saturation (40.0-70.0) % VBG Base Excess (-2-3) VBG Lactic Acid (0.5-2.0) mmol/L Carboxyhemoglobin (0.0-1.5) % THgb Total Hemoglobin (13.5-16.5) gm/Dl Sodium 123 L (133-145) mmol/L Potassium 4.2 (3.3-5.1) mmol/L Chloride 84 L (96-108) mmol/L Carbon Dioxide 30 (22-30) mmol/L Anion Gap 9.0 (8.0-16.0) BUN 7 (6-20) mg/dL Creatinine 0.9 (0.7-1.2) mg/dL GFR Calculation 105 Glucose 518 H* (70-105) mg/dL Calcium 9.3 (8.6-10.4) mg/dL Phosphorus (2.5-4.5) mg/dL Magnesium 2.1 (1.6-2.5) mg/dL Total Bilirubin 1.0 (0.1-1.0) mg/dL AST 26 (<40) U/L ALT 54 H (<40) U/L Alkaline Phosphatase 163 H (39-117) U/L Troponin T (<0.03) ng/mL Total Protein 7.4 (5.9-8.4) gm/dL Albumin 3.7 (3.2-5.2) gm/dL Globulin 3.7 (2.2-3.7) gm/dL Albumin/Globulin Ratio 1.0 (1.0-2.3) Lipase 14 (7-60) U/L Beta-Hydroxybutyrate 0.66 H (<0.27) mmol/L Urine Color Urine Appearance (Clear) Urine pH (5.0-9.0) Ur Specific [place] (1.000-1.035) Urine Protein (Negative) mg/dL Urine Glucose (UA) (Negative) mg/dL Urine Ketones (Negative) mg/dL Urine Occult Blood (Negative) mg/dL Urine Nitrate (Negative) Urine Bilirubin (Negative) mg/dL Urine Urobilinogen mg/dL Ur Leukocyte Esterase (Negative) /ug Urine RBC (0-3) /hpf Urine WBC (0-4) /hpf Ur Squamous Epith Cells (0-4) /hpf Urine Bacteria (0) /hpf Ur Culture Indicated? Ethyl Alcohol (<0.010) gm/dL 12/01/20 12/01/20 12/01/20 Range/Units 22:46 22:46 22:46 WBC (4.5-11.0) K/mcL RBC (4.50-5.90) M/mcL Hgb (13.5-16.5) g/dL Hct (41.0-55.0) % MCV (80.0-100.0) fL MCH (26.0-34.0) pg MCHC (31.0-36.0) g/dL RDW (11.5-14.5) % Plt Count (140-440) K/mcL MPV (7.4-10.4) fL Neut % (Auto) (38.0-78.0) % Lymph % (Auto) (15.0-49.0) % [place] % (Auto) (1.0-12.0) % Eos % (Auto) (0.0-7.0) % Baso % (Auto) (0.0-2.0) % Lymph # (Auto) (1.50-4.80) K/mcL [place] # (Auto) (0.10-0.90) K/mcL Eos # (Auto) (0.00-0.70) K/mcL Baso # (Auto) (0.00-0.20) K/mcL Absolute Neutrophils (1.80-8.00) K/mcL PT (11.9-14.5) sec INR (0.9-1.1) ABG Methemoglobin 0.3 L (0.4-1.5) % VBG pH 7.44 H (7.32-7.42) U VBG pCO2 47.6 (41.0-51.0) mmHg VBG pO2 26.4 (25.0-40.0) mmHg VBG HCO3 31.4 H (24.0-28.0) mmol/L VBG Total CO2 32.8 H (25.0-29.0) mmol/L VBG O2 Saturation 49.6 (40.0-70.0) % VBG Base Excess 6 H (-2-3) VBG Lactic Acid 1.7 (0.5-2.0) mmol/L Carboxyhemoglobin 7.8 H (0.0-1.5) % THgb Total Hemoglobin 14.8 (13.5-16.5) gm/Dl Sodium (133-145) mmol/L Potassium (3.3-5.1) mmol/L Chloride (96-108) mmol/L Carbon Dioxide (22-30) mmol/L Anion Gap (8.0-16.0) BUN (6-20) mg/dL Creatinine (0.7-1.2) mg/dL GFR Calculation Glucose (70-105) mg/dL Calcium (8.6-10.4) mg/dL Phosphorus 2.5 (2.5-4.5) mg/dL Magnesium (1.6-2.5) mg/dL Total Bilirubin (0.1-1.0) mg/dL AST (<40) U/L ALT (<40) U/L Alkaline Phosphatase (39-117) U/L Troponin T (<0.03) ng/mL Total Protein (5.9-8.4) gm/dL Albumin (3.2-5.2) gm/dL Globulin (2.2-3.7) gm/dL Albumin/Globulin Ratio (1.0-2.3) Lipase (7-60) U/L Beta-Hydroxybutyrate (<0.27) mmol/L Urine Color Urine Appearance (Clear) Urine pH (5.0-9.0) Ur Specific [place] (1.000-1.035) Urine Protein (Negative) mg/dL Urine Glucose (UA) (Negative) mg/dL Urine Ketones (Negative) mg/dL Urine Occult Blood (Negative) mg/dL Urine Nitrate (Negative) Urine Bilirubin (Negative) mg/dL Urine Urobilinogen mg/dL Ur Leukocyte Esterase (Negative) /ug Urine RBC (0-3) /hpf Urine WBC (0-4) /hpf Ur Squamous Epith Cells (0-4) /hpf Urine Bacteria (0) /hpf Ur Culture Indicated? Ethyl Alcohol (<0.010) gm/dL 12/01/20 12/01/20 12/01/20 Range/Units 22:46 22:46 22:46 WBC (4.5-11.0) K/mcL RBC (4.50-5.90) M/mcL Hgb (13.5-16.5) g/dL Hct (41.0-55.0) % MCV (80.0-100.0) fL MCH (26.0-34.0) pg MCHC (31.0-36.0) g/dL RDW (11.5-14.5) % Plt Count (140-440) K/mcL MPV (7.4-10.4) fL Neut % (Auto) (38.0-78.0) % Lymph % (Auto) (15.0-49.0) % [place] % (Auto) (1.0-12.0) % Eos % (Auto) (0.0-7.0) % Baso % (Auto) (0.0-2.0) % Lymph # (Auto) (1.50-4.80) K/mcL [place] # (Auto) (0.10-0.90) K/mcL Eos # (Auto) (0.00-0.70) K/mcL Baso # (Auto) (0.00-0.20) K/mcL Absolute Neutrophils (1.80-8.00) K/mcL PT (11.9-14.5) sec INR (0.9-1.1) ABG Methemoglobin (0.4-1.5) % VBG pH (7.32-7.42) U VBG pCO2 (41.0-51.0) mmHg VBG pO2 (25.0-40.0) mmHg VBG HCO3 (24.0-28.0) mmol/L VBG Total CO2 (25.0-29.0) mmol/L VBG O2 Saturation (40.0-70.0) % VBG Base Excess (-2-3) VBG Lactic Acid (0.5-2.0) mmol/L Carboxyhemoglobin (0.0-1.5) % THgb Total Hemoglobin (13.5-16.5) gm/Dl Sodium (133-145) mmol/L Potassium (3.3-5.1) mmol/L Chloride (96-108) mmol/L Carbon Dioxide (22-30) mmol/L Anion Gap (8.0-16.0) BUN (6-20) mg/dL Creatinine (0.7-1.2) mg/dL GFR Calculation Glucose (70-105) mg/dL Calcium (8.6-10.4) mg/dL Phosphorus (2.5-4.5) mg/dL Magnesium (1.6-2.5) mg/dL Total Bilirubin (0.1-1.0) mg/dL AST (<40) U/L ALT (<40) U/L Alkaline Phosphatase (39-117) U/L Troponin T < 0.01 (<0.03) ng/mL Total Protein (5.9-8.4) gm/dL Albumin (3.2-5.2) gm/dL Globulin (2.2-3.7) gm/dL Albumin/Globulin Ratio (1.0-2.3) Lipase (7-60) U/L Beta-Hydroxybutyrate (<0.27) mmol/L Urine Color Yellow Urine Appearance Clear (Clear) Urine pH 7.0 (5.0-9.0) Ur Specific [place] 1.026 (1.000-1.035) Urine Protein Negative (Negative) mg/dL Urine Glucose (UA) >=500 A (Negative) mg/dL Urine Ketones 5 A (Negative) mg/dL Urine Occult Blood 0.03 (Negative) mg/dL Urine Nitrate Negative (Negative) Urine Bilirubin Negative (Negative) mg/dL Urine Urobilinogen Negative mg/dL Ur Leukocyte Esterase Negative (Negative) /ug Urine RBC 0 (0-3) /hpf Urine WBC 5 H (0-4) /hpf Ur Squamous Epith Cells 0 (0-4) /hpf Urine Bacteria Mod A (0) /hpf Ur Culture Indicated? Yes Ethyl Alcohol < 0.010 (<0.010) gm/dL ED POC Tests ED POC Tests: DOM - SARS Antigen Negative CC TIME Critical Care Time Critical Care Time: Yes Total Critical Care Time: 45 Discharge Plan Patient/Caregiver Discharge Instructions Pt seen by VIDEO PRODUCTION INTERN/PA only: No Clinical Impression: Acute hyponatremia, Balanitis Acute shoulder pain Qualifiers: Laterality: right Qualified Code(s): M25.511 - Pain in right shoulder Uncontrolled type I diabetes mellitus Qualifiers: Glycemic state: with hyperglycemia Qualified Code(s): E10.65 - Type 1 diabetes mellitus with hyperglycemia Diabetes mellitus type 1 Qualifiers: Diabetes mellitus complication status: with hyperglycemia Qualified Code(s): E10.65 - Type 1 diabetes mellitus with hyperglycemia Patient Disposition: Xfer As Inpt ([facility]) Condition: Serious
[2020-12-02 01:09] LABS: Amphetamine Screen,Urine Suspect positive; Barbiturate Screen,Urine None detected; Benzodiazepines Screen,Urine None detected; Cannabinoid Screen,Urine Suspect Positive; Cocaine Screen,Urine None detected; Opiate Screen,Urine None detected; Oxycodone, Urine Screen None detected; Phencyclidine Screen,Urine None detected
[2020-12-02] MEDS ORDERED: INSULIN LISPRO 1 UNIT/0.01 ML UNIT SQ ONE (01:13)
[2020-12-02] MEDS ORDERED: morphine 4 MG/ML VIAL ONE (01:26)
[2020-12-02] MEDS: morphine 4 MG/ML VIAL IV PRN ×4 (01:29→20:13)
[2020-12-02] MEDS: 0.9 % SODIUM CHLORIDE 10 ML SYRINGE IV SCH ×4 (04:25→21:27)
[2020-12-02] MEDS ORDERED: traZODone HCL 50 MG TABLET PO PRN (07:43)
[2020-12-02] MEDS: INSULIN LISPRO 1 UNIT/0.01 ML UNIT SQ SCH ×5 (07:45→23:54)
--- NOTE | 2020-12-02 07:53 | Internal Med History&Physical ---
HPI History of Present Illness Patient information: Note initiated : 12/02/20 at 7:46 am Service Date, if different from initiated Date: [] Patient: Scot Winchester a 40 y/o M admitted on 12/02/20 for back pain. Chief Complaint: [Right shoulder and right rib pain. ] History of present illness: Mr. Winchester is a 40 year old M history of type 2 diabetes mellitus as well as polysubstance abuse including marijuana and methamphetamine, presenting with 2-day history of right shoulder pain and right lateral chest/rib pain. No prior similar episode. Only to the symptoms, he presented to our ED last night overnight where a x-ray of the right upper ext remity as well as chest CT were performed and the official interpretations were pending. Moreover, he was found to be hyper glycemic with blood sugar 518, with no acidosis or widened anion gap. Serum sodium level corrected against glucose level is 133. Patient stated that he still used his insulin as directed and never misses a dose. Constitutional Constitutional: Absent chills, excessive sweating, fatigue, fever(s) and weakness EENT Eyes: Absent blurry vision, change in vision, loss of vision and other visual disturbances Ears: Absent decreased hearing and tinnitus Nose, mouth and throat: Absent abnormal hearing, dry mouth, headache(s), nasal congestion and sore throat Cardiovascular Cardiovascular: Absent chest pain, chest pain at rest, edema, irregular heart rhythm and palpatations Respiratory Respiratory: Absent cough, dyspnea and wheezing Gastrointestinal Gastrointestinal: Absent abdominal pain, constipation, diarrhea, nausea and vomiting Musculoskeletal Musculoskeletal: Absent back pain, deformity, limited range of motion, muscle cramps, muscle weakness and numbness Additional comments: Right shoulder pain and right lateral chest/rib pain. Integumentary Integumentary: Absent lesions, rash and wounds Neurological Neurological: Absent focal weakness, headache(s) and numbness Psychiatric Psychiatric: Absent anxiety, depression and hallucinations PFSH PFSH All Active Problems (Updated 12/02/20 @ 07:52 by Myles Mckenzie MD) Right shoulder pain (Acute) Hyponatremia (Acute) Cannabis abuse, daily use (Acute) Methamphetamine abuse (Acute) Hyperglycemia due to type 2 diabetes mellitus (Acute) Acute shoulder pain (Acute) Uncontrolled type I diabetes mellitus (Acute) Acute hyponatremia (Acute) Balanitis (Acute) Flank pain (Acute) Hypothermia (Acute) Hypoglycemia (Acute) Hypokalemia (Acute) Obtundation (Acute) Anemia (Acute) Diabetes mellitus type 1 (Chronic) Abscess of skin or subcutaneous tissue (Acute) Costochondritis (Acute) Medical History Diabetes mellitus type 1 Flank pain Lumbar radiculopathy MEDS/ALLERGIES Home Medications and Allergies Home Medications Medication Instructions Recorded Confirmed Type No Known Home Meds 11/30/20 12/01/20 History Allergies Allergy/AdvReac Type Severity Reaction Status Date / Time No Known Drug Allergies Allergy Unknown Verified 11/30/20 16:53 [NO KNOWN DRUG ALLERGIES] EXAM Constitutional Vitals: Temp Pulse Resp BP Pulse Ox 37.7 C H 107 H 20 165/106 91 12/02/20 03:53 12/02/20 03:53 12/02/20 03:53 12/02/20 03:53 12/02/20 03:53 General appearance: cooperative and no acute distress Head Head exam: Present atraumatic and normocephalic Eye Eye exam: Present EOMI and PERRL ENT ENT exam: Present mucous membranes moist, normal exam and normal external ear exam Neck Neck exam: Present normal inspection; Absent lymphadenopathy, tenderness and thyromegaly Respiratory Respiratory exam: Absent accessory muscle use, respiratory distress and wheezes Cardiovascular Cardiovascular exam: Present normal rate and rhythm; Absent JVD GI/Abdominal GI/Abdominal exam: Present normal bowel sounds and soft; Absent organomegaly and tenderness Rectal Rectal exam: Present deferred Extremities Exam Extremities exam: Present normal capillary refill, normal inspection and tenderness; Absent full ROM Additional comments: Tenderness to palpations right shoulder. Active and passive range of motion of the right shoulder joint limited by pain. Neurological Exam Neurological exam: Present alert, CN II-XII intact and oriented X3; Absent motor sensory deficit Psychiatric Psychiatric exam: Present normal affect and normal mood; Absent anxious and depressed Skin Skin exam: Present dry and intact DATA Data Completed and Pending Labs: Labs from last 24 hours 12/01/20 12/01/20 12/01/20 22:46 22:46 22:46 WBC RBC Hgb Hct MCV MCH MCHC RDW Plt Count MPV Neut % (Auto) Lymph % (Auto) [place] % (Auto) Eos % (Auto) Baso % (Auto) Lymph # (Auto) [place] # (Auto) Eos # (Auto) Baso # (Auto) Absolute Neutrophils PT INR ABG Methemoglobin VBG pH VBG pCO2 VBG pO2 VBG HCO3 VBG Total CO2 VBG O2 Saturation VBG Base Excess VBG Lactic Acid Carboxyhemoglobin Total Hemoglobin Sodium Potassium Chloride Carbon Dioxide Anion Gap BUN Creatinine GFR Calculation Glucose Calcium Phosphorus Magnesium Total Bilirubin AST ALT Alkaline Phosphatase Troponin T < 0.01 Total Protein Albumin Globulin Albumin/Globulin Ratio Lipase Beta-Hydroxybutyrate Urine Color Yellow Urine Appearance Clear Urine pH 7.0 Ur Specific [place] 1.026 Urine Protein Negative Urine Glucose (UA) >=500 A Urine Ketones 5 A Urine Occult Blood 0.03 Urine Nitrate Negative Urine Bilirubin Negative Urine Urobilinogen Negative Ur Leukocyte Esterase Negative Urine RBC 0 Urine WBC 5 H Ur Squamous Epith Cells 0 Urine Bacteria Mod A Ur Culture Indicated? Yes Urine Opiates Screen Ur Opiates Confirm Ur Oxycodone Screen Urine Methadone Screen Ur Methadone Confirm Ur Barbiturates Screen Ur Barbiturate Confirm Ur Phencyclidine Scrn Urine PCP Confirm Ur Amphetamines Screen U Amphetamines Confirm U Benzodiazepines Scrn U Benzodiazepine Confm Urine Cocaine Screen Urine Cocaine Confirm U Cannabinoids Confirm U Marijuana (THC) Screen Ethyl Alcohol < 0.010 12/01/20 12/01/20 12/01/20 22:46 22:46 22:46 WBC RBC Hgb Hct MCV MCH MCHC RDW Plt Count MPV Neut % (Auto) Lymph % (Auto) [place] % (Auto) Eos % (Auto) Baso % (Auto) Lymph # (Auto) [place] # (Auto) Eos # (Auto) Baso # (Auto) Absolute Neutrophils PT INR ABG Methemoglobin 0.3 L VBG pH 7.44 H VBG pCO2 47.6 VBG pO2 26.4 VBG HCO3 31.4 H VBG Total CO2 32.8 H VBG O2 Saturation 49.6 VBG Base Excess 6 H VBG Lactic Acid 1.7 Carboxyhemoglobin 7.8 H Total Hemoglobin 14.8 Sodium Potassium Chloride Carbon Dioxide Anion Gap BUN Creatinine GFR Calculation Glucose Calcium Phosphorus Magnesium Total Bilirubin AST ALT Alkaline Phosphatase Troponin T Total Protein Albumin Globulin Albumin/Globulin Ratio Lipase Beta-Hydroxybutyrate Urine Color Urine Appearance Urine pH Ur Specific [place] Urine Protein Urine Glucose (UA) Urine Ketones Urine Occult Blood Urine Nitrate Urine Bilirubin Urine Urobilinogen Ur Leukocyte Esterase Urine RBC Urine WBC Ur Squamous Epith Cells Urine Bacteria Ur Culture Indicated? Urine Opiates Screen None detected Ur Opiates Confirm TNP Ur Oxycodone Screen None detected Urine Methadone Screen None detected Ur Methadone Confirm TNP Ur Barbiturates Screen None detected Ur Barbiturate Confirm TNP Ur Phencyclidine Scrn None detected Urine PCP Confirm TNP Ur Amphetamines Screen Suspect positive A U Amphetamines Confirm Pending U Benzodiazepines Scrn None detected U Benzodiazepine Confm TNP Urine Cocaine Screen None detected Urine Cocaine Confirm TNP U Cannabinoids Confirm Pending U Marijuana (THC) Screen Suspect positive A Ethyl Alcohol 12/01/20 12/01/20 12/01/20 22:46 22:46 22:46 WBC RBC Hgb Hct MCV MCH MCHC RDW Plt Count MPV Neut % (Auto) Lymph % (Auto) [place] % (Auto) Eos % (Auto) Baso % (Auto) Lymph # (Auto) [place] # (Auto) Eos # (Auto) Baso # (Auto) Absolute Neutrophils PT 15.2 H INR 1.2 H ABG Methemoglobin VBG pH VBG pCO2 VBG pO2 VBG HCO3 VBG Total CO2 VBG O2 Saturation VBG Base Excess VBG Lactic Acid Carboxyhemoglobin Total Hemoglobin Sodium 123 L Potassium 4.2 Chloride 84 L Carbon Dioxide 30 Anion Gap 9.0 BUN 7 Creatinine 0.9 GFR Calculation 105 Glucose 518 H* Calcium 9.3 Phosphorus 2.5 Magnesium 2.1 Total Bilirubin 1.0 AST 26 ALT 54 H Alkaline Phosphatase 163 H Troponin T Total Protein 7.4 Albumin 3.7 Globulin 3.7 Albumin/Globulin Ratio 1.0 Lipase 14 Beta-Hydroxybutyrate 0.66 H Urine Color Urine Appearance Urine pH Ur Specific [place] Urine Protein Urine Glucose (UA) Urine Ketones Urine Occult Blood Urine Nitrate Urine Bilirubin Urine Urobilinogen Ur Leukocyte Esterase Urine RBC Urine WBC Ur Squamous Epith Cells Urine Bacteria Ur Culture Indicated? Urine Opiates Screen Ur Opiates Confirm Ur Oxycodone Screen Urine Methadone Screen Ur Methadone Confirm Ur Barbiturates Screen Ur Barbiturate Confirm Ur Phencyclidine Scrn Urine PCP Confirm Ur Amphetamines Screen U Amphetamines Confirm U Benzodiazepines Scrn U Benzodiazepine Confm Urine Cocaine Screen Urine Cocaine Confirm U Cannabinoids Confirm U Marijuana (THC) Screen Ethyl Alcohol 12/01/20 22:46 WBC 10.5 RBC 4.74 Hgb 14.7 Hct 43.3 MCV 91.4 MCH 31.0 MCHC 33.9 RDW 11.6 Plt Count 168 MPV 10.0 Neut % (Auto) 81.9 H Lymph % (Auto) 10.3 L [place] % (Auto) 6.5 Eos % (Auto) 0.8 Baso % (Auto) 0.5 Lymph # (Auto) 1.08 L [place] # (Auto) 0.68 Eos # (Auto) 0.08 Baso # (Auto) 0.05 Absolute Neutrophils 8.61 H PT INR ABG Methemoglobin VBG pH VBG pCO2 VBG pO2 VBG HCO3 VBG Total CO2 VBG O2 Saturation VBG Base Excess VBG Lactic Acid Carboxyhemoglobin Total Hemoglobin Sodium Potassium Chloride Carbon Dioxide Anion Gap BUN Creatinine GFR Calculation Glucose Calcium Phosphorus Magnesium Total Bilirubin AST ALT Alkaline Phosphatase Troponin T Total Protein Albumin Globulin Albumin/Globulin Ratio Lipase Beta-Hydroxybutyrate Urine Color Urine Appearance Urine pH Ur Specific [place] Urine Protein Urine Glucose (UA) Urine Ketones Urine Occult Blood Urine Nitrate Urine Bilirubin Urine Urobilinogen Ur Leukocyte Esterase Urine RBC Urine WBC Ur Squamous Epith Cells Urine Bacteria Ur Culture Indicated? Urine Opiates Screen Ur Opiates Confirm Ur Oxycodone Screen Urine Methadone Screen Ur Methadone Confirm Ur Barbiturates Screen Ur Barbiturate Confirm Ur Phencyclidine Scrn Urine PCP Confirm Ur Amphetamines Screen U Amphetamines Confirm U Benzodiazepines Scrn U Benzodiazepine Confm Urine Cocaine Screen Urine Cocaine Confirm U Cannabinoids Confirm U Marijuana (THC) Screen Ethyl Alcohol A/P Assessment and plan (1) Hyperglycemia due to type 2 diabetes mellitus: Status: Acute (2) Methamphetamine abuse: Status: Acute (3) Cannabis abuse, daily use: Status: Acute (4) Hyponatremia: Status: Acute (5) Right shoulder pain: Status: Acute Narrative A/P Narrative: 1. Hyperglycemia with Type 2 diabetes mellitus: Admit to inpatient med surg HgA1c Hold any oral hypoglycemics High dose correctional scale insulin Add weight base long acting insulin-->Lantus 30 unit SQ daily Accu Chek AC HS Hypoglycemia protocol By tomorrow, will use 24 hour total insulin requirement data to modify the insulin regimen Diabetic diet 2. Hyponatremia: Corrected sodium level against blood glucose: 133 NS@100cc/hr Repeat chemistry in the morning to trend serum sodium level 3. Right shoulder pain: Pending right upper extremity X ray to rule out fracture/joint dislocation/any other acute pathologies Morphine IV PRN severe pain Right arm sling 4. Polysubstance abuse: UDS positive for methamphetamine and marijuana Continue to monitor for associated symptoms Time Spent With Patient Time: Total time spent is greater than 50% in coordination of care (as documented) at patient's floor/unit and/or counseling patient: Total time spent with greater than 50% in coordination of care (as documented) at patient's floor/unit and/or counseling patient:: 15 - 24 minutes
[2020-12-02] MEDS ORDERED: DOCUSATE SODIUM 100 MG CAPSULE PO SCH (09:00)
[2020-12-02] MEDS: ENOXAPARIN 30 MG/0.3 ML SYRINGE SQ SCH (09:32)
[2020-12-02] MEDS: INSULIN GLARGINE, HUMAN 1 UNIT/0.01 ML SQ SCH (09:32)
[2020-12-02 09:46] LABS: Estimated Average Glucose(eAG) 375 mg/dL; Hemoglobin A1C 14.7 % Hgb (4.0-6.0)
--- NOTE | 2020-12-02 09:51 | XRay Report ---
HISTORY: Right shoulder pain FINDINGS: No fracture dislocation or degenerative change are present in the shoulder. There is arthritis in the neck at C6-7. Right lung is clear. IMPRESSION: Normal shoulder Interpreted and Authenticated by: Adrien Banks 12/02/20
--- NOTE | 2020-12-02 10:07 | Cat Scan Report ---
History: Right flank pain and mid back pain TECHNIQUE: The patient was imaged without contrast scanning from the diaphragm through the symphysis pubis. Sagittal and coronal reformats were created. The radiation exposure was limited using dose reduction technology. FINDINGS: There is mild atelectasis in the posterior basal segment of the right lower lobe. Evaluation of the abdominal organs without contrast is somewhat limited. The liver is normal in size and homogeneous. The spleen is normal in size. There is a large calcified granuloma anteriorly and superiorly. The gallbladder is contracted. There are no stones within the lumen. The bile ducts are nondilated. There is moderate amount of ingested material in the stomach. The gallbladder contraction may be a physiologic response. There is no evidence of mass or inflammation in the pancreas. The adrenals are normal and symmetric. In the lower pole of the right kidney there is a nonobstructing 1 mm calculus. The kidneys are otherwise normal bilaterally. No left-sided stone is seen. Both ureters are decompressed. Urinary bladder has mild generalized thickening of the wall. The wall is smooth with no nodularity. No stones or mass are seen within the bladder. No abnormality is seen in the prostate or seminal vesicles. The bowel gas pattern is normal. The appendix is noninflamed. Several scattered plaques are present along the wall normal caliber distal abdominal aorta and common iliac arteries. There is no adenopathy or free fluid in the abdomen or pelvis. Patient has a levoscoliotic curvature at the thoracolumbar junction. Disc space narrowing and spur formation are present at L5-S1. IMPRESSION: Tiny nonobstructing stone in the lower pole of the right kidney Generalized thickening of the bladder wall. This may be due to cystitis or bladder outlet obstruction. Mild degenerative disc disease at L5-S1 Premature atherosclerosis of the aorta and iliac arteries Interpreted and Authenticated by: Adrien Banks 12/02/20
[2020-12-02] MEDS: DOCUSATE SODIUM 100 MG CAPSULE PO SCH ×2 (11:46→21:09)
[2020-12-02] MEDS ORDERED: VANCOMYCIN PER PHARMACY IV ONE (17:31)
--- NOTE | 2020-12-02 17:33 | Internal Med Progress Note ---
SUBJECTIVE Subjective Patient information: Note initiated : 12/02/20 at 5:32 pm Service Date, if different from initiated Date: [] Patient: Scot Wicnhester 40 y/o M admitted on 12/02/20 for back pain. Chief Complaint: [] Interval history: History of present illness: Mr. Winchester is a 40 year old M history of type 2 diabetes mellitus as well as polysubstance abuse including marijuana and methamphetamine, presenting with 2-day history of right shoulder pain and right lateral chest/rib pain. No prior similar episode. Only to the symptoms, he presented to our ED last night overnight where a x-ray of the right upper extremity as well as chest CT were performed and the official interpretations were pending. Moreover, he was found to be hyper glycemic with blood sugar 518, with no acidosis or widened anion gap. Serum sodium level corrected against glucose level is 133. Patient stated that he still used his insulin as directed and never misses a dose. 12/03 Constitutional Vitals: Vital Signs Temp Pulse Resp BP Pulse Ox 98.5 F 100 H 20 155/98 96 12/02/20 16:00 12/02/20 16:00 12/02/20 16:00 12/02/20 16:00 12/02/20 16:00 Period Temp Pulse Resp BP Sys/Lea Pulse Ox Last 24 Hr 97 F-100.3 F 91-122 18-22 139-183/82-120 91-99 Intake and Output 12/02/20 12/02/20 12/02/20 05:59 13:59 21:59 Intake Total 1840 930 Output Total 2525 700 Balance -685 930 -700 Weight 89.103 kg Intake & Output: Intake & Output 12/02/20 12/02/20 12/02/20 05:59 13:59 21:59 Intake Total 1840 930 Output Total 2525 700 Balance -685 930 -700 Weight 89.103 kg Intake: IV 1120 930 Sodium Chloride 0.9% 1,000 ml @ 1070 930 100 mls/hr IV .Q10H [facility] Rx#: [id number] Rocephin 2 gm In Dextrose 5% in 50 Water 50 ml @ 100 mls/hr IV ONCE ONE Rx#:[id number] Oral 720 Output: Void Amount 2525 700 Other: Meal Lunch Percent of Meal Consumed 100% Feeding Ability Independent Urine Appearance Clear Clear Urine Color Dark Yellow Dark Yellow # Voids 1 Exam: General: Alert, Awake, No acute Distress Eyes/N/T: EOMI, Head/Neck: neck supple, CV: RRR, No murmurs, Pulm: Clear b/l, no wheezing/rhonchi/rales Abd: soft, nontender, +BS x4 Ext: no clubbing/cyanosis/edema Neuro: Alert, no focal deficits, moves all extremities, Skin: warm/dry OBJ DATA Labs CBC & Chem 7: 12/01/20 22:46 12/01/20 22:46 Labs: Abnormal Lab Results 12/02/20 12/01/20 12/01/20 08:30 22:46 22:46 Neut % (Auto) Lymph % (Auto) Lymph # (Auto) Absolute Neutrophils PT INR ABG Methemoglobin 0.3 L VBG pH 7.44 H VBG HCO3 31.4 H VBG Total CO2 32.8 H VBG Base Excess 6 H Carboxyhemoglobin 7.8 H Sodium Chloride Glucose Hemoglobin A1c 14.7 H ALT Alkaline Phosphatase Beta-Hydroxybutyrate Urine Glucose (UA) >=500 A Urine Ketones 5 A Urine WBC 5 H Urine Bacteria Mod A Ur Amphetamines Screen U Marijuana (THC) Screen 12/01/20 12/01/20 12/01/20 22:46 22:46 22:46 Neut % (Auto) Lymph % (Auto) Lymph # (Auto) Absolute Neutrophils PT 15.2 H INR 1.2 H ABG Methemoglobin VBG pH VBG HCO3 VBG Total CO2 VBG Base Excess Carboxyhemoglobin Sodium 123 L Chloride 84 L Glucose 518 H* Hemoglobin A1c ALT 54 H Alkaline Phosphatase 163 H Beta-Hydroxybutyrate 0.66 H Urine Glucose (UA) Urine Ketones Urine WBC Urine Bacteria Ur Amphetamines Screen Suspect positive A U Marijuana (THC) Screen Suspect positive A 12/01/20 22:46 Neut % (Auto) 81.9 H Lymph % (Auto) 10.3 L Lymph # (Auto) 1.08 L Absolute Neutrophils 8.61 H PT INR ABG Methemoglobin VBG pH VBG HCO3 VBG Total CO2 VBG Base Excess Carboxyhemoglobin Sodium Chloride Glucose Hemoglobin A1c ALT Alkaline Phosphatase Beta-Hydroxybutyrate Urine Glucose (UA) Urine Ketones Urine WBC Urine Bacteria Ur Amphetamines Screen U Marijuana (THC) Screen Meds: Medications Acetaminophen (Acetaminophen 325 Mg Tablet) 650 mg PO Q6HP PRN; Protocol PRN Reason: Per Pain Protocol/Fever > 101 Last Admin: 12/02/20 07:45 Dose: 650 mg Documented by: Acetaminophen (Acetaminophen 325 Mg Tablet) 650 mg PO Q6HP PRN; Protocol PRN Reason: Per Pain Protocol/Fever > 101 Dextrose (Dextrose 50% 50 Ml Vial) 0 ml IV UD PRN PRN Reason: Hypoglycemia Diagnostic Test (Pha) (Accu-Chek 1 Each Strip) 1 each FS [facility] Last Admin: 12/02/20 16:57 Dose: 1 each Documented by: Docusate Sodium (Docusate Sodium 100 Mg Capsule) 100 mg PO BID [facility] Last Admin: 12/02/20 09:43 Dose: Not Given Documented by: Docusate Sodium (Docusate Sodium 100 Mg Capsule) 100 mg PO BID [facility] Last Admin: 12/02/20 11:46 Dose: Not Given Documented by: Enoxaparin Sodium (Enoxaparin 30 Mg/0.3 Ml Syringe) 30 mg SQ DAILY [facility] Last Admin: 12/02/20 09:32 Dose: 30 mg Documented by: Glucose (Dextrose 31 Gm Oral.Susp) 15 gm PO PRN PRN PRN Reason: Hypoglycemia Sodium Chloride (Sodium Chloride 0.9%) 1,000 mls @ 100 mls/hr IV .Q10H [facility] Last Admin: 12/02/20 11:36 Dose: 100 mls/hr Documented by: Sodium Chloride (Sodium Chloride 0.9%) 1,000 mls @ 0 mls/hr IV .Q0M [facility] Insulin Glargine (Insulin Glargine, Human 1 Unit/0.01 Ml) 30 unit SQ DAILY [facility] Last Admin: 12/02/20 09:32 Dose: 30 units Documented by: Insulin Human Lispro (Insulin Lispro 1 Unit/0.01 Ml Unit) 0 unit SQ [facility]; Protocol Last Admin: 12/02/20 17:24 Dose: 9 units Documented by: Morphine Sulfate (Morphine 4 Mg/Ml Vial) 4 mg IV Q4HP PRN; Protocol PRN Reason: Per Pain Protocol Last Admin: 12/02/20 11:51 Dose: 4 mg Documented by: Ondansetron HCl (Ondansetron 4 Mg/2 Ml Vial) 4 mg IV Q6HP PRN PRN Reason: Nausea And Vomiting Ondansetron HCl (Ondansetron 4 Mg/2 Ml Vial) 4 mg IV Q6HP PRN PRN Reason: Nausea And Vomiting Senna (Sennosides 1 Tablet) 2 tab PO HS [facility] Senna (Sennosides 1 Tablet) 2 tab PO HS [facility] Sodium Chloride (0.9 % Sodium Chloride 10 Ml Syringe) 10 ml IV Q8 [facility] Last Admin: 12/02/20 13:13 Dose: Not Given Documented by: Sodium Chloride (0.9 % Sodium Chloride 10 Ml Syringe) 10 ml IV Q8 [facility] Last Admin: 12/02/20 13:13 Dose: Not Given Documented by: Trazodone HCl (Trazodone Hcl 50 Mg Tablet) 50 mg PO HSP PRN PRN Reason: Insomnia ABG Interpretation ABG results: 12/01/20 22:46 ABG Methemoglobin 0.3 L VBG pH 7.44 H VBG pCO2 47.6 VBG pO2 26.4 VBG HCO3 31.4 H VBG Total CO2 32.8 H VBG O2 Saturation 49.6 VBG Base Excess 6 H A/P Narrative A/P Narrative: A: *Hyperglycemia with Type 2 diabetes mellitus: poorly controlled -A1c 14.7 *Bacteremia(GPC): *Hyponatremia: Corrected sodium level against blood glucose: 133 *Right shoulder pain: -X-ray unremarkable *Polysubstance abuse: -UDS positive for methamphetamine and marijuana P: -Add weight base long acting insulin-->Lantus 30 unit SQ daily - -Rose, pending BC -echo pending - -referral to [facility] if agreeable -ppx: lovenox Time Spent With Patient Time: Total time spent is greater than 50% in coordination of care (as documented) at patient's floor/unit and/or counseling patient:
[2020-12-02] MEDS ORDERED: HYDROcodone/APAP 5/325MG TABLET PO PRN (17:43)
[2020-12-02] MEDS ORDERED: LORazepam 2 MG/ML VIAL IV PRN (17:43)
[2020-12-02] MEDS ORDERED: SENNOSIDES 1 TABLET PO SCH (21:00)
[2020-12-02] MEDS: VANCOMYCIN 1,500 MG in 0.9 % SODIUM CHLORIDE 500 ML IV SCH (21:06)
[2020-12-02] MEDS: SENNOSIDES 1 TABLET PO SCH (21:09)
[2020-12-03] MEDS: 0.9 % SODIUM CHLORIDE 1,000 ML IV SCH (03:59)
[2020-12-03] MEDS: INSULIN LISPRO 1 UNIT/0.01 ML UNIT SQ SCH ×6 (04:05→21:41)
[2020-12-03] MEDS: morphine 4 MG/ML VIAL IV PRN (04:25)
[2020-12-03] MEDS: 0.9 % SODIUM CHLORIDE 10 ML SYRINGE IV SCH ×3 (04:26→21:41)
[2020-12-03] MEDS ORDERED: VANCOMYCIN PER PHARMACY IV SCH (07:15)
[2020-12-03 08:06] LABS: ALT/SGPT 31 U/L (<40); AST/SGOT 29 U/L (<40); Albumin 2.7 gm/dL (3.2-5.2); Albumin/Globulin Ratio 0.7 (1.0-2.3); Alkaline Phosphatase 185 U/L (39-117); Bilirubin,Direct < 0.2 mg/dL (0-0.3); Bilirubin,Total 0.5 mg/dL (0.1-1.0); Blood Urea Nitrogen 6 mg/dL (6-20); Calcium 8.4 mg/dL (8.6-10.4); Carbon Dioxide 24 mmol/L (22-30); Chloride 95 mmol/L (96-108); Globulin 3.9 gm/dL (2.2-3.7); Glomerular Filtration Rate 133; Glucose 207 mg/dL (70-105); Lactate Dehydrogenase 298 U/L (135-225); Phosphorous 2.4 mg/dL (2.5-4.5); Triglycerides 191 mg/dL (<150); Uric Acid 2.2 mg/dL (2.5-8.0)
--- NOTE | 2020-12-03 08:16 | Internal Med Progress Note ---
SUBJECTIVE Subjective Patient information: Note initiated : 12/03/20 at 8:11 am Service Date, if different from initiated Date: [] Patient: Scot Winchester 40 y/o M admitted on 12/02/20 for back pain. Chief Complaint: [] Interval history: History of present illness: Mr. Winchester is a 40 year old M history of type 2 diabetes mellitus as well as polysubstance abuse including marijuana and methamphetamine, presenting with 2-day history of right shoulder pain and right lateral chest/rib pain. No prior similar episode. Only to the symptoms, he presented to our ED last night overnight where a x-ray of the right upper extremity as well as chest CT were performed and the official interpretations were pending. Moreover, he was found to be hyper glycemic with blood sugar 518, with no acidosis or widened anion gap. Serum sodium level corrected against glucose level is 133. Patient stated that he still used his insulin as directed and never misses a dose. 12/03 Patient refused insulin coverage with a blood sugar of 193 earlier this morning. 12/04 Patient states he has little bit of headache. Was amenable to seeing Dr. Traci jean baptiste when he got out of the hospital. He has chronic back pain, states no change in severity. Review of Systems: denies fever/chills/nausea/vomiting/chest or abdominal pain/cough/dyspnea/diarrhea. Otherwise see above. Constitutional Vitals: Vital Signs Temp Pulse Resp BP Pulse Ox 96.9 F L 88 18 144/98 99 12/03/20 07:38 12/03/20 07:38 12/03/20 07:38 12/03/20 07:38 12/03/20 07:38 Period Temp Pulse Resp BP Sys/Lea Pulse Ox Last 24 Hr 96.9 F-98.5 F 88-100 14-20 144-183/96-98 95-99 Intake and Output 12/02/20 12/03/20 12/03/20 21:59 05:59 13:59 Intake Total 894 1050 Output Total 1999 1000 Balance -1106 50 Weight 90.322 kg Intake & Output: Intake & Output 12/02/20 12/03/20 12/03/20 21:59 05:59 13:59 Intake Total 894 1050 Output Total 1999 1000 Balance -1106 50 Weight 90.322 kg Intake: IV 894 500 Sodium Chloride 0.9% 1,000 ml @ 894 125 mls/hr IV .Q8H [facility] Rx#: [id number] Vancomycin 1,500 mg In Sodium 500 Chloride 0.9% 500 ml @ 333.3 mls/hr IV Q12H [facility] Rx#: [id number] Oral 550 Output: Void Amount 2000 1000 Other: Meal Lunch Percent of Meal Consumed 100% Feeding Ability Independent Urine Appearance Clear Clear Urine Color Bright Yellow Bright Yellow Urine Odor Normal # Voids 1 Exam: General: Alert, Awake, No acute Distress Eyes/N/T: EOMI, Head/Neck: neck supple, CV: RRR, No murmurs, Pulm: Clear b/l, no wheezing/rhonchi/rales Abd: soft, nontender, +BS x4 Ext: no clubbing/cyanosis/edema Neuro: Alert, no focal deficits, moves all extremities, Skin: warm/dry OBJ DATA Labs CBC & Chem 7: 12/03/20 05:57 12/03/20 05:57 Labs: Abnormal Lab Results 12/03/20 12/02/20 12/01/20 05:57 08:30 22:46 Neut % (Auto) Lymph % (Auto) Lymph # (Auto) Absolute Neutrophils PT INR ABG Methemoglobin VBG pH VBG HCO3 VBG Total CO2 VBG Base Excess Carboxyhemoglobin Sodium 130 L Chloride 95 L Creatinine 0.5 L Glucose 207 H Hemoglobin A1c 14.7 H Uric Acid 2.2 L Calcium 8.4 L Phosphorus 2.4 L GGT 114 H ALT Alkaline Phosphatase 185 H Lactate Dehydrogenase 298 H Albumin 2.7 L Globulin 3.9 H Albumin/Globulin Ratio 0.7 L Triglycerides 191 H Beta-Hydroxybutyrate Urine Glucose (UA) >=500 A Urine Ketones 5 A Urine WBC 5 H Urine Bacteria Mod A Ur Amphetamines Screen U Marijuana (THC) Screen 12/01/20 12/01/20 12/01/20 22:46 22:46 22:46 Neut % (Auto) Lymph % (Auto) Lymph # (Auto) Absolute Neutrophils PT 15.2 H INR 1.2 H ABG Methemoglobin 0.3 L VBG pH 7.44 H VBG HCO3 31.4 H VBG Total CO2 32.8 H VBG Base Excess 6 H Carboxyhemoglobin 7.8 H Sodium Chloride Creatinine Glucose Hemoglobin A1c Uric Acid Calcium Phosphorus GGT ALT Alkaline Phosphatase Lactate Dehydrogenase Albumin Globulin Albumin/Globulin Ratio Triglycerides Beta-Hydroxybutyrate Urine Glucose (UA) Urine Ketones Urine WBC Urine Bacteria Ur Amphetamines Screen Suspect positive A U Marijuana (THC) Screen Suspect positive A 12/01/20 12/01/20 22:46 22:46 Neut % (Auto) 81.9 H Lymph % (Auto) 10.3 L Lymph # (Auto) 1.08 L Absolute Neutrophils 8.61 H PT INR ABG Methemoglobin VBG pH VBG HCO3 VBG Total CO2 VBG Base Excess Carboxyhemoglobin Sodium 123 L Chloride 84 L Creatinine Glucose 518 H* Hemoglobin A1c Uric Acid Calcium Phosphorus GGT ALT 54 H Alkaline Phosphatase 163 H Lactate Dehydrogenase Albumin Globulin Albumin/Globulin Ratio Triglycerides Beta-Hydroxybutyrate 0.66 H Urine Glucose (UA) Urine Ketones Urine WBC Urine Bacteria Ur Amphetamines Screen U Marijuana (THC) Screen Meds: Medications Acetaminophen (Acetaminophen 325 Mg Tablet) 650 mg PO Q6HP PRN; Protocol PRN Reason: Per Pain Protocol/Fever > 101 Hydrocodone Bitart/Acetaminophen (Hydrocodone/Apap 5/325mg Tablet) 1 tab PO Q4- 6HP PRN; Protocol PRN Reason: Per Pain Protocol Dextrose (Dextrose 50% 50 Ml Vial) 0 ml IV UD PRN PRN Reason: Hypoglycemia Diagnostic Test (Pha) (Accu-Chek 1 Each Strip) 1 each FS Q4H [facility] Last Admin: 12/03/20 04:01 Dose: 1 each Documented by: Docusate Sodium (Docusate Sodium 100 Mg Capsule) 100 mg PO BID [facility] Last Admin: 12/02/20 21:09 Dose: Not Given Documented by: Enoxaparin Sodium (Enoxaparin 30 Mg/0.3 Ml Syringe) 30 mg SQ DAILY [facility] Last Admin: 12/02/20 09:32 Dose: 30 mg Documented by: Glucose (Dextrose 31 Gm Oral.Susp) 15 gm PO PRN PRN PRN Reason: Hypoglycemia Sodium Chloride (Sodium Chloride 0.9%) 1,000 mls @ 0 mls/hr IV .Q0M [facility] [place] Sodium Chloride (Sodium Chloride 0.9%) 1,000 mls @ 125 mls/hr IV .Q8H [facility] Last Admin: 12/03/20 03:59 Dose: Not Given Documented by: Vancomycin HCl 1,500 mg/ (Sodium Chloride) 500 mls @ 333.3 mls/hr IV Q12H [facility] [place] Last Infusion: 12/02/20 23:05 Dose: Infused Documented by: Insulin Glargine (Insulin Glargine, Human 1 Unit/0.01 Ml) 30 unit SQ DAILY [facility] [place] Last Admin: 12/02/20 09:32 Dose: 30 units Documented by: Insulin Human Lispro (Insulin Lispro 1 Unit/0.01 Ml Unit) 0 unit SQ Q4 [facility]; Protocol Last Admin: 12/03/20 04:05 Dose: Not Given Documented by: Lorazepam (Lorazepam 2 Mg/Ml Vial) 0.5 mg IV Q4-6HP PRN PRN Reason: Anxiety/Sedation/agitation Last Admin: 12/02/20 21:26 Dose: 0.5 mg Documented by: Morphine Sulfate (Morphine 4 Mg/Ml Vial) 4 mg IV Q4HP PRN; Protocol PRN Reason: Per Pain Protocol Last Admin: 12/03/20 04:25 Dose: 4 mg Documented by: Ondansetron HCl (Ondansetron 4 Mg/2 Ml Vial) 4 mg IV Q6HP PRN PRN Reason: Nausea And Vomiting Senna (Sennosides 1 Tablet) 2 tab PO HS [facility] [place] Last Admin: 12/02/20 21:09 Dose: Not Given Documented by: Sodium Chloride (0.9 % Sodium Chloride 10 Ml Syringe) 10 ml IV Q8 [facility] [place] Last Admin: 12/03/20 04:26 Dose: 10 ml Documented by: Trazodone HCl (Trazodone Hcl 50 Mg Tablet) 50 mg PO HSP PRN PRN Reason: Insomnia Vancomycin HCl (Vancomycin Per Pharmacy) 1 order IV UD [facility]; Protocol ABG Interpretation ABG results: 12/01/20 22:46 ABG Methemoglobin 0.3 L VBG pH 7.44 H VBG pCO2 47.6 VBG pO2 26.4 VBG HCO3 31.4 H VBG Total CO2 32.8 H VBG O2 Saturation 49.6 VBG Base Excess 6 H A/P Narrative A/P Narrative: A: *Hyperglycemia w/Type 2 diabetes mellitus: poorly controlled -A1c 14.7 *Bacteremia(Strep Agalactiea): *Hyponatremia: Corrected sodium level against blood glucose: 133 *Right shoulder pain/chronic back pain: back pain no change in severity -shoulder X-ray unremarkable *Polysubstance abuse: -UDS positive for methamphetamine and marijuana *Tobacco abuse: P: -clarify home insulin regimen -Rose, pending final BC's. -Abx for 14-day course (10-day course may be appropriate if rapid clearance) IV therapy for uncomplicated bacteremia -echo pending -IVF -referral to Tr[facility] -Smoking and substance use cessation counseling -ppx: lovenox Time Spent With Patient Time: Total time spent is greater than 50% in coordination of care (as doc umented) at patient's floor/unit and/or counseling patient:
[2020-12-03 08:30] LABS: Basophils # (Auto) 0.05 K/mcL (0.00-0.20); Basophils % (Auto) 0.5 % (0.0-2.0); Eosinophils # (Auto) 0.13 K/mcL (0.00-0.70); Eosinophils % (Auto) 1.2 % (0.0-7.0); Hematocrit 41.8 % (41.0-55.0); Hemoglobin 14.1 g/dL (13.5-16.5); Lymphocytes # (Auto) 1.46 K/mcL (1.50-4.80); Lymphocytes % (Auto) 13.7 % (15.0-49.0); Mean Cell Volume 90.7 fL (80.0-100.0); Mean Corpuscular HGB Conc 33.7 g/dL (31.0-36.0); Mean Platelet Volume 10.7 fL (7.4-10.4); Monocytes # (Auto) 0.92 K/mcL (0.10-0.90); Monocytes % (Auto) 8.6 % (1.0-12.0); Platelet Count 178 K/mcL (140-440); RBC 4.61 M/mcL (4.50-5.90); Red Cell Distribution Width 11.7 % (11.5-14.5); WBC 10.6 K/mcL (4.5-11.0)
[2020-12-03] MEDS: INSULIN GLARGINE, HUMAN 1 UNIT/0.01 ML SQ SCH (08:42)
[2020-12-03] MEDS: ENOXAPARIN 30 MG/0.3 ML SYRINGE SQ SCH (08:43)
[2020-12-03] MEDS ORDERED: KETOROLAC 15 MG/ML VIAL IV ONE (09:03)
[2020-12-03] MEDS: VANCOMYCIN 1,500 MG in 0.9 % SODIUM CHLORIDE 500 ML IV SCH ×2 (09:34→21:41)
[2020-12-03] MEDS: DOCUSATE SODIUM 100 MG CAPSULE PO SCH ×2 (09:35→21:41)
[2020-12-03] MEDS: HYDROcodone/APAP 5/325MG TABLET PO PRN ×2 (09:35→21:42)
[2020-12-03] MEDS: NICOTINE 21 MG PATCH TOPICAL SCH (09:36)
[2020-12-03] MEDS: KETOROLAC 10 MG TABLET PO PRN (19:21)
[2020-12-03] MEDS: SENNOSIDES 1 TABLET PO SCH (21:40)
[2020-12-04] MEDS: HYDROcodone/APAP 5/325MG TABLET PO PRN ×4 (04:09→20:55)
[2020-12-04] MEDS: 0.9 % SODIUM CHLORIDE 10 ML SYRINGE IV SCH ×3 (04:09→22:05)
[2020-12-04] MEDS: KETOROLAC 10 MG TABLET PO PRN ×2 (04:24→20:55)
[2020-12-04] MEDS: INSULIN LISPRO 1 UNIT/0.01 ML UNIT SQ SCH ×4 (07:37→20:57)
[2020-12-04 07:47] LABS: ALT/SGPT 37 U/L (<40); AST/SGOT 37 U/L (<40); Albumin 2.7 gm/dL (3.2-5.2); Albumin/Globulin Ratio 0.8 (1.0-2.3); Alkaline Phosphatase 173 U/L (39-117); Bilirubin,Direct < 0.2 mg/dL (0-0.3); Bilirubin,Total 0.4 mg/dL (0.1-1.0); Blood Urea Nitrogen 11 mg/dL (6-20); Calcium 8.2 mg/dL (8.6-10.4); Carbon Dioxide 22 mmol/L (22-30); Chloride 96 mmol/L (96-108); Globulin 3.6 gm/dL (2.2-3.7); Glomerular Filtration Rate 116; Glucose 258 mg/dL (70-105); Lactate Dehydrogenase 348 U/L (135-225); Phosphorous 2.6 mg/dL (2.5-4.5); Triglycerides 184 mg/dL (<150); Uric Acid 2.2 mg/dL (2.5-8.0)
--- NOTE | 2020-12-04 08:01 | Internal Med Progress Note ---
SUBJECTIVE Subjective Patient information: Note initiated : 12/04/20 at 7:58 am Service Date, if different from initiated Date: [] Patient: Scot Winchester 40 y/o M admitted on 12/02/20 for back pain. Chief Complaint: [] Interval history: History of present illness: Mr. Winchester is a 40 year old M history of type 2 diabetes mellitus as well as polysubstance abuse including marijuana and methamphetamine, presenting with 2-day history of right shoulder pain and right lateral chest/rib pain. No prior similar episode. Only to the symptoms, he presented to our ED last night overnight where a x-ray of the right upper extremity as well as chest CT were performed and the official interpretations were pending. Moreover, he was found to be hyper glycemic with blood sugar 518, with no acidosis or widened anion gap. Serum sodium level corrected against glucose level is 133. Patient stated that he still used his insulin as directed and never misses a dose. 12/02 Patient refused insulin coverage with a blood sugar of 193 earlier this morning. 12/03 Patient states he has little bit of headache. Was amenable to seeing Dr. Traci jean baptiste when he got out of the hospital. He has chronic back pain, states no change in severity. 12/04 Patient feeling much better today. Blood culture 2/ bottles growing Streptococcus agalactiae. Titrating up insulin regimen. Review of Systems: denies fever/chills/nausea/vomiting/chest or abdominal pain/cough/d yspnea/diarrhea. Otherwise see above. Constitutional Vitals: Vital Signs Temp Pulse Resp BP Pulse Ox 97.8 F 77 18 162/107 97 12/04/20 04:20 12/04/20 04:20 12/04/20 04:20 12/04/20 04:20 12/04/20 04:20 Period Temp Pulse Resp BP Sys/Lea Pulse Ox Last 24 Hr 97.2 F-99 F 77-98 14-20 135-162/85-107 92-98 Intake and Output 12/03/20 12/04/20 12/04/20 21:59 05:59 13:59 Intake Total 1660 1300 Output Total 1000 1800 Balance 660 -500 Weight 88.904 kg Intake & Output: Intake & Output 12/03/20 12/04/20 12/04/20 21:59 05:59 13:59 Intake Total 1660 1300 Output Total 1000 1800 Balance 660 -500 Weight 88.904 kg Intake: IV 500 Vancomycin 1,500 mg In Sodium 500 Chloride 0.9% 500 ml @ 333.3 mls/hr IV Q12H [facility] Rx#: [id number] Oral 1660 800 Output: Void Amount 1000 1800 Other: Meal Dinner Percent of Meal Consumed 100% Feeding Ability Independent Urine Appearance Clear Urine Color Bright Yellow Exam: General: Alert, Awake, No acute Distress Eyes/N/T: EOMI, Head/Neck: neck supple, CV: RRR, No murmurs, Pulm: Clear b/l, no wheezing/rhonchi/rales Abd: soft, nontender, +BS x4 Ext: no clubbing/cyanosis/edema Neuro: Alert, no focal deficits, moves all extremities, Skin: warm/dry OBJ DATA Labs CBC & Chem 7: 12/03/20 05:57 12/04/20 05:17 Labs: Abnormal Lab Results 12/04/20 12/03/20 12/03/20 05:17 05:57 05:57 MPV 10.7 H Neut % (Auto) Lymph % (Auto) 13.7 L Lymph # (Auto) 1.46 L [place] # (Auto) 0.92 H Absolute Neutrophils 8.08 H PT INR ABG Methemoglobin VBG pH VBG HCO3 VBG Total CO2 VBG Base Excess Carboxyhemoglobin Sodium 130 L 130 L Chloride 95 L Creatinine 0.5 L Glucose 258 H 207 H Hemoglobin A1c Uric Acid 2.2 L 2.2 L Calcium 8.2 L 8.4 L Phosphorus 2.4 L GGT 117 H 114 H ALT Alkaline Phosphatase 173 H 185 H Lactate Dehydrogenase 348 H 298 H Albumin 2.7 L 2.7 L Globulin 3.9 H Albumin/Globulin Ratio 0.8 L 0.7 L Triglycerides 184 H 191 H Beta-Hydroxybutyrate Urine Glucose (UA) Urine Ketones Urine WBC Urine Bacteria Ur Amphetamines Screen U Marijuana (THC) Screen 12/02/20 12/01/20 12/01/20 08:30 22:46 22:46 MPV Neut % (Auto) Lymph % (Auto) Lymph # (Auto) [place] # (Auto) Absolute Neutrophils PT INR ABG Methemoglobin 0.3 L VBG pH 7.44 H VBG HCO3 31.4 H VBG Total CO2 32.8 H VBG Base Excess 6 H Carboxyhemoglobin 7.8 H Sodium Chloride Creatinine Glucose Hemoglobin A1c 14.7 H Uric Acid Calcium Phosphorus GGT ALT Alkaline Phosphatase Lactate Dehydrogenase Albumin Globulin Albumin/Globulin Ratio Triglycerides Beta-Hydroxybutyrate Urine Glucose (UA) >=500 A Urine Ketones 5 A Urine WBC 5 H Urine Bacteria Mod A Ur Amphetamines Screen U Marijuana (THC) Screen 12/01/20 12/01/20 12/01/20 22:46 22:46 22:46 MPV Neut % (Auto) Lymph % (Auto) Lymph # (Auto) [place] # (Auto) Absolute Neutrophils PT 15.2 H INR 1.2 H ABG Methemoglobin VBG pH VBG HCO3 VBG Total CO2 VBG Base Excess Carboxyhemoglobin Sodium 123 L Chloride 84 L Creatinine Glucose 518 H* Hemoglobin A1c Uric Acid Calcium Phosphorus GGT ALT 54 H Alkaline Phosphatase 163 H Lactate Dehydrogenase Albumin Globulin Albumin/Globulin Ratio Triglycerides Beta-Hydroxybutyrate 0.66 H Urine Glucose (UA) Urine Ketones Urine WBC Urine Bacteria Ur Amphetamines Screen Suspect positive A U Marijuana (THC) Screen Suspect positive A 12/01/20 22:46 MPV Neut % (Auto) 81.9 H Lymph % (Auto) 10.3 L Lymph # (Auto) 1.08 L [place] # (Auto) Absolute Neutrophils 8.61 H PT INR ABG Methemoglobin VBG pH VBG HCO3 VBG Total CO2 VBG Base Excess Carboxyhemoglobin Sodium Chloride Creatinine Glucose Hemoglobin A1c Uric Acid Calcium Phosphorus GGT ALT Alkaline Phosphatase Lactate Dehydrogenase Albumin Globulin Albumin/Globulin Ratio Triglycerides Beta-Hydroxybutyrate Urine Glucose (UA) Urine Ketones Urine WBC Urine Bacteria Ur Amphetamines Screen U Marijuana (THC) Screen Meds: Medications Acetaminophen (Acetaminophen 325 Mg Tablet) 650 mg PO Q6HP PRN; Protocol PRN Reason: Per Pain Protocol/Fever > 101 Hydrocodone Bitart/Acetaminophen (Hydrocodone/Apap 5/325mg Tablet) 1 - 2 tab PO Q4-6HP PRN; Protocol PRN Reason: Per Pain Protocol Last Admin: 12/04/20 04:09 Dose: 2 tab Documented by: Dextrose (Dextrose 50% 50 Ml Vial) 0 ml IV UD PRN PRN Reason: Hypoglycemia Diagnostic Test (Pha) (Accu-Chek 1 Each Strip) 1 each FS ACHS [facility] Last Admin: 12/04/20 07:28 Dose: 1 each Documented by: Docusate Sodium (Docusate Sodium 100 Mg Capsule) 100 mg PO BID [facility] Last Admin: 12/03/20 21:41 Dose: 100 mg Documented by: Enoxaparin Sodium (Enoxaparin 30 Mg/0.3 Ml Syringe) 30 mg SQ DAILY [facility] Last Admin: 12/03/20 08:43 Dose: 30 mg Documented by: Glucose (Dextrose 31 Gm Oral.Susp) 15 gm PO PRN PRN PRN Reason: Hypoglycemia Vancomycin HCl 1,500 mg/ (Sodium Chloride) 500 mls @ 333.3 mls/hr IV Q12H [facility] Last Infusion: 12/03/20 23:26 Dose: Infused Documented by: Insulin Glargine (Insulin Glargine, Human 1 Unit/0.01 Ml) 30 unit SQ DAILY [facility] Last Admin: 12/03/20 08:42 Dose: 30 units Documented by: Insulin Human Lispro (Insulin Lispro 1 Unit/0.01 Ml Unit) 0 unit SQ ACHS [facility]; Protocol Last Admin: 12/04/20 07:37 Dose: 12 unit Documented by: Ketorolac Tromethamine (Ketorolac 10 Mg Tablet) 10 mg PO Q6HP PRN PRN Reason: Per Pain Protocol Last Admin: 12/04/20 04:24 Dose: 10 mg Documented by: Lorazepam (Lorazepam 2 Mg/Ml Vial) 0.5 mg IV Q4-6HP PRN PRN Reason: Anxiety/Sedation/agitation Last Admin: 12/02/20 21:26 Dose: 0.5 mg Documented by: Morphine Sulfate (Morphine 4 Mg/Ml Vial) 4 mg IV Q4HP PRN; Protocol PRN Reason: Per Pain Protocol Last Admin: 12/03/20 04:25 Dose: 4 mg Documented by: Nicotine (Nicotine 21 Mg Patch) 21 mg TOPICAL DAILY@1000 [facility] Last Admin: 12/03/20 09:36 Dose: 21 mg Documented by: Ondansetron HCl (Ondansetron 4 Mg/2 Ml Vial) 4 mg IV Q6HP PRN PRN Reason: Nausea And Vomiting Senna (Sennosides 1 Tablet) 2 tab PO HS [facility] Last Admin: 12/03/20 21:40 Dose: 2 tab Documented by: Sodium Chloride (0.9 % Sodium Chloride 10 Ml Syringe) 10 ml IV Q8 [facility] Last Admin: 12/04/20 04:09 Dose: 10 ml Documented by: Trazodone HCl (Trazodone Hcl 50 Mg Tablet) 50 mg PO HSP PRN PRN Reason: Insomnia Vancomycin HCl (Vancomycin Per Pharmacy) 1 order IV UD SRINIVAS; Protocol ABG Interpretation ABG results: 12/01/20 22:46 ABG Methemoglobin 0.3 L VBG pH 7.44 H VBG pCO2 47.6 VBG pO2 26.4 VBG HCO3 31.4 H VBG Total CO2 32.8 H VBG O2 Saturation 49.6 VBG Base Excess 6 H A/P Narrative A/P Narrative: A: *Hyperglycemia w/Type 2 diabetes mellitus: poorly controlled -A1c 14.7 *Bacteremia(Strep Agalactiea) 09/14 bottles: f/u BC neg thus far *Hyponatremia: Corrected sodium level against blood glucose: 133 *Right shoulder pain/chronic back pain: back pain no change in severity -shoulder X-ray unremarkable *Polysubstance abuse: -UDS positive for methamphetamine and marijuana *Tobacco abuse: *UTI on admit (strep group B) P: -clarify home insulin regimen (cont titrate up lantus) -Rose, pending final BC's. -Abx for 14-day course (10-day course may be appropriate if rapid clearance) IV therapy for uncomplicated bacteremia -echo pending -referral to Traci -Smoking and substance use cessation counseling -ppx: lovenox Time Spent With Patient Time: Total time spent is greater than 50% in coordination of care (as documented) at patient's floor/unit and/or counseling patient:
[2020-12-04] MEDS: ENOXAPARIN 30 MG/0.3 ML SYRINGE SQ SCH (08:41)
[2020-12-04] MEDS: SODIUM CHLORIDE 1 GM TABLET PO SCH ×3 (08:41→20:56)
[2020-12-04] MEDS: DOCUSATE SODIUM 100 MG CAPSULE PO SCH ×2 (08:41→20:58)
[2020-12-04] MEDS: INSULIN GLARGINE, HUMAN 1 UNIT/0.01 ML SQ SCH (08:41)
[2020-12-04] MEDS: VANCOMYCIN 1,500 MG in 0.9 % SODIUM CHLORIDE 500 ML IV SCH (08:42)
[2020-12-04] MEDS: amLODIPine 5 MG TABLET PO SCH (10:06)
[2020-12-04] MEDS: METHOCARBAMOL 750 MG TABLET PO PRN ×3 (10:06→23:38)
[2020-12-04] MEDS: NICOTINE 21 MG PATCH TOPICAL SCH (11:01)
[2020-12-04] MEDS: LIDOCAINE PATCH TOPICAL SCH (11:01)
[2020-12-04] MEDS: cefTRIAXone 2 GM in DEXTROSE 5% IN WATER 50 ML IV SCH (11:05)
--- NOTE | 2020-12-04 11:08 | Discharge Summary ---
Discharge Provider Provider Patient information: Note initiated : 12/04/20 at 11:06 am Service Date, if different from initiated Date: [] Patient: Scot Winchester 40 y/o M admitted on 12/02/20 for back pain. Chief Complaint: [] Date of admission: 12/02/20 00:54 Discharge date: 12/05/20 Primary care physician: PCP No Consults: 12/02/20 Consult to Physician [CONS] Stat Comment: Consulting Provider: Myles Mckenzie Reason For Exam: Physician to Consult Discharge Meds Discharge Medications Home Medications amlodipine 5 mg PO DAILY #30 tab 12/04/20 [Rx Last Taken Unknown] amoxicillin-pot clavulanate [Augmentin] 1 tab PO Q12H #14 tab 12/04/20 [Rx Last Taken Unknown] ceftriaxone 2 gm IV Q24H #3 ea 12/04/20 [Rx Last Taken Unknown] insulin aspart U-100 1 unit SUBCUT ACHS #15 ml MDD 40 12/04/20 [Rx Last Taken Unknown] COURSE Hospital Course Hospital course: Interval history: History of present illness: Mr. Winchester is a 40 year old M history of type 2 diabetes mellitus as well as polysubstance abuse including marijuana and methamphetamine, presenting with 2-day history of right shoulder pain and right lateral chest/rib pain. No prior similar episode. Only to the symptoms, he presented to our ED last night overnight where a x-ray of the right upper extremity as well as chest CT were performed and the official interp retations were pending. Moreover, he was found to be hyper glycemic with blood sugar 518, with no acidosis or widened anion gap. Serum sodium level corrected against glucose level is 133. Patient stated that he still used his insulin as directed and never misses a dose. 12/02 Patient refused insulin coverage with a blood sugar of 193 earlier this morning. 12/03 Patient states he has little bit of headache. Was amenable to seeing Dr. Traci jean baptiste when he got out of the hospital. He has chronic back pain, states no change in severity. 12/04 Patient feeling much better today. Blood culture 2/4 bottles growing Streptococcus agalactiae. Titrating up insulin regimen. *She almost left AMA on Friday the . Willing to only stay 1 more day and states he is willing to come back and Friday for outpt ceftriaxone infusion. Per Dr. Doe finish out a week of IV antibiotics finished on Rocephin grams daily, followed by a week of oral Augmentin. Patient will follow up with Dr. Doe A: *Hyperglycemia w/Type 2 diabetes mellitus: poorly controlled -A1c 14.7 *Bacteremia(Strep Agalactiea) / bottles: f/u BC neg thus far *Hyponatremia: Corrected sodium level against blood glucose: 133 *Right shoulder pain/chronic back pain: back pain no change in severity -shoulder X-ray unremarkable *Polysubstance abuse: -UDS positive for methamphetamine and marijuana *Tobacco abuse: *UTI on admit (strep group B) *HTN: started on norvasc Discharge diagnosis: Diabetes with hyperglycemia strep bacteremia substance abuse Secondary discharge diagnosis: Tobacco abuse UTI Time Spent with Patient Time attestation: Total time spent providing and/or coordinating discharge services: Time spent: Greater than 30 minutes EXAM Constitutional Vitals: Temp Pulse Resp BP Pulse Ox 98.6 F 87 20 153/102 100 12/04/20 08:00 12/04/20 08:00 12/04/20 08:00 12/04/20 08:00 12/04/20 08:00 Discharge Data Data Completed and Pending Labs on day of discharge: Labs from last 24 hours 12/04/20 12/04/20 08:04 05:17 Sodium 130 L Potassium 4.0 Chloride 96 Carbon Dioxide 22 Anion Gap 12.0 BUN 11 Creatinine 0.7 GFR Calculation 116 Glucose 258 H Uric Acid 2.2 L Calcium 8.2 L Phosphorus 2.6 Magnesium 2.3 Total Bilirubin 0.4 Direct Bilirubin < 0.2 GGT 117 H AST 37 ALT 37 Alkaline Phosphatase 173 H Lactate Dehydrogenase 348 H Total Protein 6.3 Albumin 2.7 L Globulin 3.6 Albumin/Globulin Ratio 0.8 L Triglycerides 184 H Vancomycin Trough 5.7 Preliminary micro results at discharge 12/01/20 22:46 Blood Culture - Preliminary Blood 12/03/20 06:10 Blood Culture - Preliminary Blood 12/03/20 05:57 Blood Culture - Preliminary Blood 12/01/20 22:16 Blood Culture - Preliminary Blood Strep agalactiae - (group b) Discharge Plan Patient/Caregiver Discharge Instructions Activity: increase activity as tolerated Diet: Consistent Carbohydrate Activity Restrictions/Additional Instructions: Follow-up with PCP in 3 to 7 days. Record all blood glucose readings and bring log to PCP. Return to outpatient infusion center for Rocephin infusions Friday and Friday. Then continue Augmentin oral medication for a week. Prescriptions: New amlodipine 5 mg Tablet 5 mg PO DAILY Qty: 30 RF: 0 ceftriaxone 2 gram Recon Soln 2 gm IV Q24H Qty: 3 RF: 0 insulin aspart U-100 100 unit/mL (3 mL) insulin pen 1 unit subcut ACHS MDD 40 Qty: 15 RF: 0 amoxicillin-pot clavulanate [Augmentin] 875-125 mg tablet 1 tab PO Q12H Qty: 14 RF: 0 Follow Up Plan Follow up with: Bia Aviles DO [Physician] - Scot Doe MD [Physician] - Patient Disposition: Home, Self-Care Prognosis: Undetermined Overall status at discharge: patient is progressing back to baseline Discharge Orders: Discharge Order (Routine); Ordered 12/05/20 Ordered By: Mau Pickett
[2020-12-04] MEDS: SENNOSIDES 1 TABLET PO SCH (20:58)
[2020-12-04] MEDS ORDERED: INSULIN GLARGINE, HUMAN 1 UNIT/0.01 ML SQ SCH (21:00)
[2020-12-05] MEDS: HYDROcodone/APAP 5/325MG TABLET PO PRN ×3 (01:20→06:29)
[2020-12-05] MEDS: KETOROLAC 10 MG TABLET PO PRN (04:11)
[2020-12-05] MEDS: 0.9 % SODIUM CHLORIDE 10 ML SYRINGE IV SCH (04:15)
[2020-12-05] MEDS: METHOCARBAMOL 750 MG TABLET PO PRN (06:29)
[2020-12-05] MEDS: cefTRIAXone 2 GM in DEXTROSE 5% IN WATER 50 ML IV SCH (09:16)
[2020-12-05] MEDS: INSULIN LISPRO 1 UNIT/0.01 ML UNIT SQ SCH (09:17)
[2020-12-05] MEDS: NICOTINE 21 MG PATCH TOPICAL SCH (09:18)
[2020-12-05] MEDS: ENOXAPARIN 30 MG/0.3 ML SYRINGE SQ SCH (09:18)
[2020-12-05] MEDS: LIDOCAINE PATCH TOPICAL SCH (09:18)
[2020-12-05] MEDS: amLODIPine 5 MG TABLET PO SCH (09:18)
[2020-12-05] MEDS: INSULIN GLARGINE, HUMAN 1 UNIT/0.01 ML SQ SCH (09:19)
[2020-12-05] MEDS: DOCUSATE SODIUM 100 MG CAPSULE PO SCH (09:19)
[2020-12-05] MEDS ORDERED: amLODIPine 5 MG TABLET PO SCH (09:45)
[2020-12-05 11:17] LABS: Blood Urea Nitrogen 9 mg/dL (6-20); Calcium 8.9 mg/dL (8.6-10.4); Carbon Dioxide 28 mmol/L (22-30); Chloride 99 mmol/L (96-108); Glomerular Filtration Rate 110; Glucose 412 mg/dL (70-105)
[2020-12-11 07:49] LABS: Cannabinoid Confirmation Positive
== END 2020-12-05 11:06 | disposition home or self-care (01) | DRG 638 ==
LOC: ED 22:00 → MEDSUR 12-02 00:54
PROVIDERS: ADMIT Internal Medicine; ATTEND Internal Medicine

== ENCOUNTER 2023-12-03 14:30 | Inpatient (IN) ==
[2023-12-03] MEDS ORDERED: ACETAMINOPHEN 325 MG TABLET PO PRN (14:38)
[2023-12-03] MEDS ORDERED: POLYETHYLENE GLYCOL 3350 17 GM PACKET PO PRN (14:38)
[2023-12-03] MEDS ORDERED: IPRATROPIUM/ALBUTEROL 3 ML AMPUL.NEB NEB PRN (14:38)
[2023-12-03] MEDS ORDERED: SENNOSIDES 1 TABLET PO PRN (14:38)
[2023-12-03] MEDS ORDERED: ONDANSETRON 4 MG/2 ML VIAL IV PRN (14:38)
[2023-12-03] MEDS ORDERED: MAGNESIUM SULFATE 2 GM/50 ML BAG IV PRN (14:38)
[2023-12-03] MEDS ORDERED: POTASSIUM CHLORIDE 20 MEQ TABLET PO PRN ×2 (14:38)
[2023-12-03] MEDS ORDERED: DEXTROSE 50% 50 ML VIAL IV PRN (14:38)
[2023-12-03] MEDS ORDERED: POTASSIUM CHLORIDE 40 MEQ in DEXTROSE 5% IN WATER 500 ML IV PRN (14:38)
[2023-12-03] MEDS ORDERED: DEXTROSE 31 GM ORAL.SUSP PO PRN (14:38)
[2023-12-03] MEDS ORDERED: HYDROmorphone 0.5 MG/0.5 ML SYRINGE IV PRN (14:38)
[2023-12-03] MEDS ORDERED: VANCOMYCIN PER PHARMACY IV SCH (14:45)
[2023-12-03] MEDS ORDERED: HYDROcodone/APAP 5/325MG TABLET PO PRN ×2 (15:04→15:07)
[2023-12-03] MEDS: INSULIN LISPRO 1 UNIT/0.01 ML UNIT SQ SCH (17:55)
[2023-12-03] MEDS: HYDROcodone/APAP 5/325MG TABLET PO PRN (18:32)
[2023-12-03] MEDS: VANCOMYCIN 1,250 MG in 0.9 % SODIUM CHLORIDE 500 ML IV SCH (19:48)
[2023-12-03] MEDS ORDERED: traZODone HCL 50 MG TABLET PO PRN (20:11)
[2023-12-03] MEDS: DOCUSATE SODIUM 100 MG CAPSULE PO SCH (22:13)
[2023-12-03] MEDS: diphenhydrAMINE 25 MG CAPSULE PO PRN (22:13)
[2023-12-03] MEDS: 0.9 % SODIUM CHLORIDE 10 ML SYRINGE IV SCH (22:14)
[2023-12-03] MEDS: HEPARIN 5,000 UNIT/ML VIAL SQ SCH (22:18)
[2023-12-03] MEDS: MELATONIN 3 MG TABLET PO PRN (22:18)
[2023-12-03] MEDS: PIPERACILLIN SODIUM/TAZOBACTAM 3.375 GM in DEXTROSE 5% IN WATER 100 ML IV SCH (22:19)
[2023-12-04] MEDS: METHOCARBAMOL 750 MG TABLET PO PRN (01:41)
[2023-12-04] MEDS: morphine 4 MG/ML VIAL IV PRN (03:00)
[2023-12-04 06:46] LABS: Basophils # (Auto) 0.08 K/mcL (0.00-0.30); Basophils % (Auto) 0.8 % (0.0-2.0); Eosinophils # (Auto) 0.21 K/mcL (0.00-0.70); Hematocrit 39.4 % (40.1-51.0); Hemoglobin 12.9 g/dL (13.7-17.5); Lymphocytes # (Auto) 2.07 K/mcL (1.50-4.80); Lymphocytes % (Auto) 19.9 % (15.5-49.0); Mean Cell Volume 92.7 fL (80.0-100.0); Mean Corpuscular HGB Conc 32.7 g/dL (31.0-36.0); Mean Platelet Volume 9.1 fL (8.8-12.5); Monocytes # (Auto) 0.46 K/mcL (0.10-0.90); Monocytes % (Auto) 4.4 % (1.0-12.0); Neutrophils % (Auto) 72.5 % (38.0-78.0); Platelet Count 326 K/mcL (140-440); RBC 4.25 M/mcL (4.63-6.08); WBC 10.4 K/mcL (4.5-11.0)
[2023-12-04 07:53] LABS: ALT/SGPT 40 U/L (<40); AST/SGOT 28 U/L (<40); Albumin/Globulin Ratio 0.7 (1.0-2.3); Alkaline Phosphatase 204 U/L (39-117); Bilirubin,Direct < 0.2 mg/dL (0-0.3); Bilirubin,Total < 0.2 mg/dL (0.1-1.0); Blood Urea Nitrogen 17 mg/dL (6-20); Calcium 8.8 mg/dL (8.6-10.4); Carbon Dioxide 24 mmol/L (22-30); Chloride 98 mmol/L (96-108); Globulin 4.4 gm/dL (2.2-3.7); Glomerular Filtration Rate 113; Glucose 326 mg/dL (70-105); Lactate Dehydrogenase 148 U/L (135-225); Phosphorous 3.3 mg/dL (2.5-4.5); Triglycerides 186 mg/dL (<150); Uric Acid 1.8 mg/dL (2.5-8.0)
[2023-12-04] MEDS: ESCITALOPRAM 10 MG TABLET PO SCH (10:17)
[2023-12-04] MEDS: NICOTINE 21 MG PATCH TOPICAL SCH (10:48)
[2023-12-04] MEDS: INSULIN GLARGINE, HUMAN 1 UNIT/0.01 ML SQ SCH (10:51)
[2023-12-04] MEDS ORDERED: ONDANSETRON 4 MG/2 ML VIAL ONE (14:10)
[2023-12-04] MEDS ORDERED: KETAMINE 50 MG/ML Syringe IV ONE (14:10)
[2023-12-04] MEDS ORDERED: DEXAMETHASONE 10 MG/ML VIAL ONE (14:10)
[2023-12-04] MEDS ORDERED: PROPOFOL 200 MG/20 ML VIAL IV ONE (14:10)
[2023-12-04] MEDS ORDERED: LIDOCAINE 2% PF 5 ML VIAL ONE (14:10)
[2023-12-04] MEDS ORDERED: LACTATED RINGERS 250 ML IV PRN (15:25)
[2023-12-04] MEDS ORDERED: diphenhydrAMINE 50 MG/ML VIAL IV PRN (15:25)
[2023-12-04] MEDS ORDERED: IPRATROPIUM/ALBUTEROL 3 ML AMPUL.NEB NEB PRN (15:25)
[2023-12-04] MEDS ORDERED: NALOXONE HCL 0.4 MG/ML VIAL IV PRN (15:25)
[2023-12-04] MEDS ORDERED: PROMETHAZINE 25 MG/ML VIAL IV PRN (15:25)
[2023-12-04] MEDS ORDERED: MEPERIDINE 25 MG/ML VIAL IV PRN (15:25)
[2023-12-04] MEDS ORDERED: ONDANSETRON 4 MG/2 ML VIAL IV PRN (15:25)
[2023-12-04] MEDS ORDERED: fentaNYL 100 MCG/2 ML VIAL IV PRN (15:25)
[2023-12-04] MEDS ORDERED: fentaNYL 100 MCG/2 ML VIAL ONE (15:27)
[2023-12-04] MEDS: LACTATED RINGERS 1,000 ML IV SCH (17:29)
[2023-12-05 06:36] LABS: Basophils # (Auto) 0.05 K/mcL (0.00-0.30); Basophils % (Auto) 0.3 % (0.0-2.0); Eosinophils % (Auto) 0.6 % (0.0-7.0); Hematocrit 38.3 % (40.1-51.0); Hemoglobin 12.4 g/dL (13.7-17.5); Lymphocytes # (Auto) 2.52 K/mcL (1.50-4.80); Lymphocytes % (Auto) 15.6 % (15.5-49.0); Mean Cell Volume 93.4 fL (80.0-100.0); Mean Corpuscular HGB Conc 32.4 g/dL (31.0-36.0); Mean Platelet Volume 8.9 fL (8.8-12.5); Monocytes % (Auto) 4.3 % (1.0-12.0); Neutrophils % (Auto) 78.8 % (38.0-78.0); Platelet Count 381 K/mcL (140-440); WBC 16.2 K/mcL (4.5-11.0)
[2023-12-05 07:02] LABS: ALT/SGPT 34 U/L (<40); AST/SGOT 25 U/L (<40); Albumin/Globulin Ratio 0.8 (1.0-2.3); Alkaline Phosphatase 187 U/L (39-117); Bilirubin,Total < 0.2 mg/dL (0.1-1.0); Blood Urea Nitrogen 19 mg/dL (6-20); Calcium 8.8 mg/dL (8.6-10.4); Carbon Dioxide 26 mmol/L (22-30); Chloride 98 mmol/L (96-108); Globulin 3.9 gm/dL (2.2-3.7); Glomerular Filtration Rate 107; Glucose 309 mg/dL (70-105)
[2023-12-05] MEDS: INSULIN GLARGINE, HUMAN 1 UNIT/0.01 ML SQ ONE (11:27)
== END 2023-12-05 13:25 | DRG 717 ==
LOC: MEDSUR 16:28
PROVIDERS: ADMIT Internal Medicine; ATTEND Internal Medicine

== ENCOUNTER 2025-06-01 16:56 | Inpatient (IN) ==
[2025-06-01] MEDS ORDERED: IOPAMIDOL 100 ML BOTTLE IV ONE (16:57)
[2025-06-01] MEDS ORDERED: VANCOMYCIN PER PHARMACY IV SCH ×2 (17:15→23:30)
[2025-06-01] MEDS: 0.9 % SODIUM CHLORIDE 1,000 ML IV ONE (17:20)
[2025-06-01] MEDS: PIPERACILLIN SODIUM/TAZOBACTAM 3.375 GM in DEXTROSE 5% IN WATER 50 ML IV ONE (17:32)
[2025-06-01 17:53] LABS: Basophils # (Auto) 0.03 K/mcL (0.00-0.30); Basophils % (Auto) 0.3 % (0.0-2.0); Eosinophils # (Auto) 0.10 K/mcL (0.00-0.70); Eosinophils % (Auto) 1.1 % (0.0-7.0); Hematocrit 36.9 % (40.1-51.0); Hemoglobin 12.1 g/dL (13.7-17.5); Lymphocytes # (Auto) 1.18 K/mcL (1.50-4.80); Lymphocytes % (Auto) 12.6 % (15.5-49.0); Mean Corpuscular HGB Conc 32.8 g/dL (31.0-36.0); Monocytes # (Auto) 0.53 K/mcL (0.10-0.90); Monocytes % (Auto) 5.7 % (1.0-12.0); Neutrophils % (Auto) 79.9 % (38.0-78.0); Platelet Count 208 K/mcL (140-440); RBC 4.08 M/mcL (4.63-6.08); WBC 9.4 K/mcL (4.5-11.0)
[2025-06-01] MEDS: VANCOMYCIN 1,500 MG in 0.9 % SODIUM CHLORIDE 500 ML IV SCH (17:56)
[2025-06-01 18:07] LABS: ALT/SGPT 21 U/L (<40); AST/SGOT 28 U/L (<40); Albumin 3.0 gm/dL (3.2-5.2); Albumin/Globulin Ratio 0.7 (1.0-2.3); Alkaline Phosphatase 150 U/L (39-117); Anion Gap 9.0 (8.0-16.0); Bilirubin,Total 0.3 mg/dL (0.1-1.0); Blood Urea Nitrogen 15 mg/dL (6-20); Calcium 8.8 mg/dL (8.6-10.4); Carbon Dioxide 29 mmol/L (22-30); Chloride 86 mmol/L (96-108); Globulin 4.6 gm/dL (2.2-3.7); Glucose 663 mg/dL (70-105); Potassium 4.6 mmol/L (3.3-5.1); Sodium 124 mmol/L (133-145)
[2025-06-01 18:29] LABS: INR 1.0 (0.9-1.1); Prothrombin Time 13.9 sec (11.9-14.5)
[2025-06-01] MEDS: INSULIN REGULAR, HUMAN 1 UNIT/0.01 ML UNIT SQ ONE ×2 (18:32→19:52)
[2025-06-01 18:42] LABS: C-Reactive Protein 6.82 mg/dL (0.03-0.80)
[2025-06-01] MEDS: LACTATED RINGERS 1,000 ML IV SCH (21:05)
[2025-06-01 22:52] LABS: Bacteria,Urine 0 /hpf (0); Bilirubin,Urine NEGATIVE (Negative); Color,Urine LT. YELLOW; Glucose,Urine (UA) >=1000 mg/dL (Negative); Ketones,Urine NEGATIVE (Negative); Leukocyte Esterase,Urine NEGATIVE /uL (Negative); PH,Urine 7.0 (5.0-9.0); Protein,Urine NEGATIVE (Negative); Specific Gravity,Urine 1.010 (1.000-1.035); Urine Budding Yeast Few /hpf; Urobilinogen,Urine 0.2 mg/dL
[2025-06-01 23:29] LABS: Beta Hydroxybutyrate 0.11 mmol/L (<0.27)
[2025-06-02] MEDS: CLINDAMYCIN IN 0.9 % SOD CHLOR 900 MG/50 ML BAG IV SCH ×2 (00:23→09:29)
[2025-06-02 00:34] LABS: Anion Gap 15.0 (8.0-16.0); Blood Urea Nitrogen 15 mg/dL (6-20); Calcium 8.9 mg/dL (8.6-10.4); Carbon Dioxide 24 mmol/L (22-30); Chloride 99 mmol/L (96-108); Glucose 381 mg/dL (70-105); Potassium 4.7 mmol/L (3.3-5.1); Sodium 138 mmol/L (133-145)
[2025-06-02] MEDS ORDERED: SENNOSIDES 1 TABLET PO PRN (01:01)
[2025-06-02] MEDS ORDERED: POTASSIUM CHLORIDE 20 MEQ in 0.45 % SODIUM CHLORIDE 1,000 ML IV PRN (01:01)
[2025-06-02] MEDS ORDERED: DEXTROSE 31 GM ORAL.SUSP PO PRN (01:01)
[2025-06-02] MEDS ORDERED: ONDANSETRON 4 MG/2 ML VIAL IV PRN ×2 (01:01→16:57)
[2025-06-02] MEDS ORDERED: DEXTROSE 5%-1/2NS W/20MEQ KCL 1,000 ML IV PRN (01:01)
[2025-06-02] MEDS: INSULIN REGULAR, HUMAN 1 UNIT/0.01 ML UNIT IV ONE (01:11)
[2025-06-02] MEDS: LACTATED RINGERS 1,000 ML IV PRN (01:14)
[2025-06-02] MEDS: INSULIN GLARGINE, HUMAN 1 UNIT/0.01 ML SQ ONE ×2 (01:29→01:30)
[2025-06-02] MEDS: PIPERACILLIN SODIUM/TAZOBACTAM 4.5 GM in DEXTROSE 5% IN WATER 100 ML IV SCH ×2 (01:31→12:16)
[2025-06-02 02:09] LABS: Anion Gap 6.0 (8.0-16.0); Blood Urea Nitrogen 12 mg/dL (6-20); Calcium 8.9 mg/dL (8.6-10.4); Carbon Dioxide 30 mmol/L (22-30); Chloride 96 mmol/L (96-108); Glucose 263 mg/dL (70-105); Potassium 4.2 mmol/L (3.3-5.1); Sodium 132 mmol/L (133-145)
[2025-06-02 02:16] LABS: Barbiturate Screen,Urine None detected; Benzodiazepines Screen,Urine None detected; Fentanyl, Urine Screen None Detected; Opiate Screen,Urine None detected; Oxycodone, Urine Screen None detected; Phencyclidine Screen,Urine None detected
[2025-06-02] MEDS: 0.9 % SODIUM CHLORIDE 10 ML SYRINGE IV SCH (04:07)
[2025-06-02 05:56] LABS: Basophils # (Auto) 0.03 K/mcL (0.00-0.30); Basophils % (Auto) 0.3 % (0.0-2.0); Eosinophils # (Auto) 0.22 K/mcL (0.00-0.70); Eosinophils % (Auto) 2.0 % (0.0-7.0); Hematocrit 32.5 % (40.1-51.0); Hemoglobin 10.5 g/dL (13.7-17.5); Lymphocytes # (Auto) 1.85 K/mcL (1.50-4.80); Lymphocytes % (Auto) 16.4 % (15.5-49.0); Mean Corpuscular HGB Conc 32.3 g/dL (31.0-36.0); Monocytes # (Auto) 0.67 K/mcL (0.10-0.90); Monocytes % (Auto) 5.9 % (1.0-12.0); Neutrophils % (Auto) 75.0 % (38.0-78.0); Platelet Count 189 K/mcL (140-440); RBC 3.51 M/mcL (4.63-6.08); WBC 11.3 K/mcL (4.5-11.0)
[2025-06-02 06:18] LABS: ALT/SGPT 15 U/L (<40); AST/SGOT 16 U/L (<40); Albumin 2.6 gm/dL (3.2-5.2); Albumin/Globulin Ratio 0.7 (1.0-2.3); Alkaline Phosphatase 111 U/L (39-117); Anion Gap 6.0 (8.0-16.0); Bilirubin,Direct < 0.2 mg/dL (0-0.3); Bilirubin,Total < 0.2 mg/dL (0.1-1.0); Blood Urea Nitrogen 11 mg/dL (6-20); Calcium 8.3 mg/dL (8.6-10.4); Carbon Dioxide 29 mmol/L (22-30); Chloride 98 mmol/L (96-108); Globulin 3.6 gm/dL (2.2-3.7); Glucose 247 mg/dL (70-105); Phosphorous 2.4 mg/dL (2.5-4.5); Potassium 3.9 mmol/L (3.3-5.1); Sodium 133 mmol/L (133-145); Triglycerides 141 mg/dL (<150); Uric Acid 2.2 mg/dL (2.5-8.0)
[2025-06-02 06:52] LABS: Estimated Average Glucose(eAG) 501.0 mg/dL; Hemoglobin A1C 19.1 % Hgb (4.0-6.0)
[2025-06-02] MEDS: INSULIN LISPRO 1 UNIT/0.01 ML UNIT SQ SCH (07:22)
[2025-06-02] MEDS: INSULIN REGULAR, HUMAN 50 UNIT in 0.9 % SODIUM CHLORIDE 99.5 ML IV PRN (08:24)
[2025-06-02] MEDS: VANCOMYCIN 1,500 MG in 0.9 % SODIUM CHLORIDE 500 ML IV SCH (09:24)
[2025-06-02] MEDS: NYSTATIN POWDER BOTTLE 15GM TOPICAL SCH (09:29)
[2025-06-02] MEDS: INSULIN GLARGINE, HUMAN 1 UNIT/0.01 ML SQ SCH ×2 (09:45→20:20)
[2025-06-02] MEDS: DEXTROSE 50% 50 ML VIAL IV PRN (11:12)
[2025-06-02] MEDS: CEFEPIME 2 GM VIAL IV SCH (11:16)
[2025-06-02] MEDS: metroNIDAZOLE 500 MG/100 ML BAG IV SCH (11:28)
[2025-06-02] MEDS ORDERED: LACTATED RINGERS 1,000 ML IV PRN (11:36)
[2025-06-02] MEDS: LACTATED RINGERS 1,000 ML IV SCH ×2 (11:38→17:17)
[2025-06-02] MEDS ORDERED: fentaNYL 100 MCG/2 ML VIAL ONE (15:12)
[2025-06-02] MEDS ORDERED: PROPOFOL 200 MG/20 ML VIAL IV ONE (15:12)
[2025-06-02] MEDS ORDERED: GLYCOPYRROLATE 0.2 MG/ML VIAL IV ONE (15:18)
[2025-06-02] MEDS ORDERED: PHENYLephrine 1 MG/10 ML SYRINGE (ANEST) ONE ×2 (15:18→16:35)
[2025-06-02] MEDS ORDERED: ONDANSETRON 4 MG/2 ML VIAL ONE (15:18)
[2025-06-02] MEDS ORDERED: ROCURONIUM 10 MG/ML ML IV ONE (16:43)
[2025-06-02] MEDS ORDERED: SUGAMMADEX SODIUM 200 MG/2 ML VIAL IV ONE (16:43)
[2025-06-02] MEDS ORDERED: DEXAMETHASONE 10 MG/ML VIAL ONE (16:52)
[2025-06-02] MEDS ORDERED: IPRATROPIUM/ALBUTEROL 3 ML AMPUL.NEB NEB PRN (16:57)
[2025-06-02] MEDS ORDERED: fentaNYL 100 MCG/2 ML VIAL IV PRN (16:57)
[2025-06-02] MEDS: HEPARIN 5,000 UNIT/ML VIAL SQ SCH (20:19)
[2025-06-03 06:55] LABS: ALT/SGPT 16 U/L (<40); AST/SGOT 23 U/L (<40); Albumin 2.5 gm/dL (3.2-5.2); Albumin/Globulin Ratio 0.6 (1.0-2.3); Alkaline Phosphatase 140 U/L (39-117); Anion Gap 6.0 (8.0-16.0); Basophils # (Auto) 0.02 K/mcL (0.00-0.30); Basophils % (Auto) 0.2 % (0.0-2.0); Bilirubin,Direct < 0.2 mg/dL (0-0.3); Bilirubin,Total < 0.2 mg/dL (0.1-1.0); Blood Urea Nitrogen 10 mg/dL (6-20); Calcium 8.6 mg/dL (8.6-10.4); Carbon Dioxide 31 mmol/L (22-30); Chloride 95 mmol/L (96-108); Eosinophils # (Auto) 0.02 K/mcL (0.00-0.70); Eosinophils % (Auto) 0.2 % (0.0-7.0); Globulin 4.2 gm/dL (2.2-3.7); Glucose 289 mg/dL (70-105); Hematocrit 36.9 % (40.1-51.0); Hemoglobin 11.8 g/dL (13.7-17.5); Lymphocytes # (Auto) 1.06 K/mcL (1.50-4.80); Lymphocytes % (Auto) 9.2 % (15.5-49.0); Mean Corpuscular HGB Conc 32.0 g/dL (31.0-36.0); Monocytes # (Auto) 0.37 K/mcL (0.10-0.90); Monocytes % (Auto) 3.2 % (1.0-12.0); Neutrophils % (Auto) 86.8 % (38.0-78.0); Phosphorous 3.1 mg/dL (2.5-4.5); Platelet Count 207 K/mcL (140-440); Potassium 4.7 mmol/L (3.3-5.1); RBC 3.97 M/mcL (4.63-6.08); Sodium 132 mmol/L (133-145); Triglycerides 164 mg/dL (<150); Uric Acid 2.2 mg/dL (2.5-8.0); WBC 11.6 K/mcL (4.5-11.0)
[2025-06-03] MEDS: MUPIROCIN OINT 2% 22GM NARES SCH (20:49)
[2025-06-03] MEDS: INSULIN GLARGINE, HUMAN 1 UNIT/0.01 ML SQ SCH (20:56)
[2025-06-03] MEDS: INSULIN GLARGINE, HUMAN 1 UNIT/0.01 ML SQ ONE (21:08)
[2025-06-04 06:29] LABS: ALT/SGPT 31 U/L (<40); AST/SGOT 48 U/L (<40); Albumin 2.6 gm/dL (3.2-5.2); Albumin/Globulin Ratio 0.7 (1.0-2.3); Alkaline Phosphatase 131 U/L (39-117); Anion Gap 7.0 (8.0-16.0); Bilirubin,Direct < 0.2 mg/dL (0-0.3); Bilirubin,Total < 0.2 mg/dL (0.1-1.0); Blood Urea Nitrogen 20 mg/dL (6-20); Calcium 8.7 mg/dL (8.6-10.4); Carbon Dioxide 31 mmol/L (22-30); Chloride 94 mmol/L (96-108); Globulin 4.0 gm/dL (2.2-3.7); Glucose 183 mg/dL (70-105); Phosphorous 2.7 mg/dL (2.5-4.5); Potassium 4.6 mmol/L (3.3-5.1); Sodium 132 mmol/L (133-145); Triglycerides 163 mg/dL (<150); Uric Acid 2.3 mg/dL (2.5-8.0)
[2025-06-04 06:39] LABS: Basophils # (Auto) 0.03 K/mcL (0.00-0.30); Basophils % (Auto) 0.3 % (0.0-2.0); Eosinophils # (Auto) 0.19 K/mcL (0.00-0.70); Eosinophils % (Auto) 2.2 % (0.0-7.0); Hematocrit 36.7 % (40.1-51.0); Hemoglobin 11.8 g/dL (13.7-17.5); Lymphocytes # (Auto) 2.36 K/mcL (1.50-4.80); Lymphocytes % (Auto) 27.1 % (15.5-49.0); Mean Corpuscular HGB Conc 32.2 g/dL (31.0-36.0); Monocytes # (Auto) 0.46 K/mcL (0.10-0.90); Monocytes % (Auto) 5.3 % (1.0-12.0); Neutrophils % (Auto) 64.5 % (38.0-78.0); Platelet Count 179 K/mcL (140-440); RBC 3.98 M/mcL (4.63-6.08); WBC 8.7 K/mcL (4.5-11.0)
[2025-06-04] MEDS: INSULIN LISPRO 1 UNIT/0.01 ML UNIT SQ SCH ×2 (07:47→12:25)
[2025-06-04] MEDS: LEVOFLOXACIN 750 MG/150 ML BAG IV SCH (20:53)
[2025-06-04] MEDS: INSULIN GLARGINE, HUMAN 1 UNIT/0.01 ML SQ SCH (21:09)
[2025-06-05 06:22] LABS: Basophils # (Auto) 0.04 K/mcL (0.00-0.30); Basophils % (Auto) 0.5 % (0.0-2.0); Eosinophils # (Auto) 0.18 K/mcL (0.00-0.70); Eosinophils % (Auto) 2.3 % (0.0-7.0); Hematocrit 37.6 % (40.1-51.0); Hemoglobin 12.2 g/dL (13.7-17.5); Lymphocytes # (Auto) 1.68 K/mcL (1.50-4.80); Lymphocytes % (Auto) 21.8 % (15.5-49.0); Mean Corpuscular HGB Conc 32.4 g/dL (31.0-36.0); Monocytes # (Auto) 0.44 K/mcL (0.10-0.90); Monocytes % (Auto) 5.7 % (1.0-12.0); Neutrophils % (Auto) 68.7 % (38.0-78.0); Platelet Count 254 K/mcL (140-440); RBC 4.10 M/mcL (4.63-6.08); WBC 7.7 K/mcL (4.5-11.0)
[2025-06-05 06:37] LABS: ALT/SGPT 41 U/L (<40); AST/SGOT 54 U/L (<40); Albumin 2.6 gm/dL (3.2-5.2); Albumin/Globulin Ratio 0.6 (1.0-2.3); Alkaline Phosphatase 129 U/L (39-117); Anion Gap 7.0 (8.0-16.0); Bilirubin,Direct < 0.2 mg/dL (0-0.3); Bilirubin,Total < 0.2 mg/dL (0.1-1.0); Blood Urea Nitrogen 23 mg/dL (6-20); Calcium 8.6 mg/dL (8.6-10.4); Carbon Dioxide 28 mmol/L (22-30); Chloride 95 mmol/L (96-108); Globulin 4.2 gm/dL (2.2-3.7); Glucose 317 mg/dL (70-105); Phosphorous 3.1 mg/dL (2.5-4.5); Potassium 4.6 mmol/L (3.3-5.1); Sodium 130 mmol/L (133-145); Triglycerides 188 mg/dL (<150); Uric Acid 2.9 mg/dL (2.5-8.0)
[2025-06-05] MEDS: INSULIN LISPRO 1 UNIT/0.01 ML UNIT SQ SCH (08:15)
[2025-06-05] MEDS: MEROPENEM 1 GM in 0.9 % SODIUM CHLORIDE 50 ML IV SCH (11:37)
[2025-06-05] MEDS ORDERED: 0.9 % SODIUM CHLORIDE 10 ML SYRINGE IV PRN (12:49)
[2025-06-05] MEDS: HEPARIN 10 UNITS/ML 5ML FLUSH IV SCH ×2 (19:33→19:34)
[2025-06-05] MEDS: VANCOMYCIN 1,250 MG in 0.9 % SODIUM CHLORIDE 500 ML IV SCH (22:57)
[2025-06-05] MEDS: 0.9 % SODIUM CHLORIDE 10 ML SYRINGE IV SCH (23:04)
[2025-06-06 06:04] LABS: Basophils # (Auto) 0.07 K/mcL (0.00-0.30); Basophils % (Auto) 0.8 % (0.0-2.0); Eosinophils # (Auto) 0.32 K/mcL (0.00-0.70); Eosinophils % (Auto) 3.5 % (0.0-7.0); Hematocrit 38.6 % (40.1-51.0); Hemoglobin 12.2 g/dL (13.7-17.5); Lymphocytes # (Auto) 2.70 K/mcL (1.50-4.80); Lymphocytes % (Auto) 29.2 % (15.5-49.0); Mean Corpuscular HGB Conc 31.6 g/dL (31.0-36.0); Monocytes # (Auto) 0.44 K/mcL (0.10-0.90); Monocytes % (Auto) 4.8 % (1.0-12.0); Neutrophils % (Auto) 60.0 % (38.0-78.0); Platelet Count 302 K/mcL (140-440); RBC 4.16 M/mcL (4.63-6.08); WBC 9.3 K/mcL (4.5-11.0)
[2025-06-06 06:17] LABS: INR 1.0 (0.9-1.1); Partial Thromboplastin Time 33.6 sec (20.0-37.0); Prothrombin Time 14.0 sec (11.9-14.5)
[2025-06-06 06:22] LABS: ALT/SGPT 54 U/L (<40); AST/SGOT 74 U/L (<40); Albumin 2.8 gm/dL (3.2-5.2); Albumin/Globulin Ratio 0.7 (1.0-2.3); Alkaline Phosphatase 131 U/L (39-117); Anion Gap 4.0 (8.0-16.0); Bilirubin,Direct < 0.2 mg/dL (0-0.3); Bilirubin,Total < 0.2 mg/dL (0.1-1.0); Blood Urea Nitrogen 27 mg/dL (6-20); Calcium 8.6 mg/dL (8.6-10.4); Carbon Dioxide 29 mmol/L (22-30); Chloride 98 mmol/L (96-108); Globulin 3.9 gm/dL (2.2-3.7); Glucose 200 mg/dL (70-105); Phosphorous 2.7 mg/dL (2.5-4.5); Potassium 4.7 mmol/L (3.3-5.1); Sodium 131 mmol/L (133-145); Triglycerides 200 mg/dL (<150); Uric Acid 3.3 mg/dL (2.5-8.0)
[2025-06-06] MEDS ORDERED: LIDOCAINE 1% 10 ML VIAL SQ ONE (08:40)
[2025-06-06] MEDS ORDERED: HEPARIN 10 UNITS/ML 5ML FLUSH IV ONE (08:40)
[2025-06-06] MEDS ORDERED: SODIUM CHLORIDE IRRIG SOLUTION 250 ML BOTTLE IRR ONE (08:40)
[2025-06-06 10:23] LABS: Hepatitis A Antibody IgM Non-Reactive (Non-Reactive); Hepatitis B Surface Antigen Negative (Negative)
[2025-06-06] MEDS: IBUPROFEN 600 MG TABLET PO SCH (12:04)
[2025-06-06] MEDS: CYCLOBENZAPRINE 10 MG TABLET PO PRN (12:05)
[2025-06-06] MEDS: INSULIN GLARGINE, HUMAN 1 UNIT/0.01 ML SQ SCH (20:58)
[2025-06-07 06:54] LABS: ALT/SGPT 71 U/L (<40); AST/SGOT 95 U/L (<40); Albumin 2.7 gm/dL (3.2-5.2); Albumin/Globulin Ratio 0.7 (1.0-2.3); Alkaline Phosphatase 126 U/L (39-117); Anion Gap 3.0 (8.0-16.0); Bilirubin,Direct < 0.2 mg/dL (0-0.3); Bilirubin,Total < 0.2 mg/dL (0.1-1.0); Blood Urea Nitrogen 28 mg/dL (6-20); Calcium 8.5 mg/dL (8.6-10.4); Carbon Dioxide 30 mmol/L (22-30); Chloride 100 mmol/L (96-108); Globulin 3.7 gm/dL (2.2-3.7); Glucose 288 mg/dL (70-105); Phosphorous 3.4 mg/dL (2.5-4.5); Potassium 4.8 mmol/L (3.3-5.1); Sodium 133 mmol/L (133-145); Triglycerides 230 mg/dL (<150); Uric Acid 3.1 mg/dL (2.5-8.0)
[2025-06-08 07:45] VITALS: O2SAT 100
[2025-06-08 08:08] LABS: ALT/SGPT 85 U/L (<40); AST/SGOT 95 U/L (<40); Albumin 2.9 gm/dL (3.2-5.2); Albumin/Globulin Ratio 0.7 (1.0-2.3); Alkaline Phosphatase 129 U/L (39-117); Anion Gap 4.0 (8.0-16.0); Bilirubin,Direct < 0.2 mg/dL (0-0.3); Bilirubin,Total < 0.2 mg/dL (0.1-1.0); Blood Urea Nitrogen 32 mg/dL (6-20); Calcium 8.9 mg/dL (8.6-10.4); Carbon Dioxide 30 mmol/L (22-30); Chloride 101 mmol/L (96-108); Globulin 3.9 gm/dL (2.2-3.7); Glucose 164 mg/dL (70-105); Phosphorous 3.5 mg/dL (2.5-4.5); Potassium 4.9 mmol/L (3.3-5.1); Sodium 135 mmol/L (133-145); Triglycerides 209 mg/dL (<150); Uric Acid 3.0 mg/dL (2.5-8.0)
[2025-06-08 08:27] LABS: Basophils # (Auto) 0.08 K/mcL (0.00-0.30); Basophils % (Auto) 1.0 % (0.0-2.0); Eosinophils # (Auto) 0.27 K/mcL (0.00-0.70); Eosinophils % (Auto) 3.4 % (0.0-7.0); Hematocrit 35.8 % (40.1-51.0); Hemoglobin 11.1 g/dL (13.7-17.5); Lymphocytes # (Auto) 2.18 K/mcL (1.50-4.80); Lymphocytes % (Auto) 27.4 % (15.5-49.0); Mean Corpuscular HGB Conc 31.0 g/dL (31.0-36.0); Monocytes # (Auto) 0.47 K/mcL (0.10-0.90); Monocytes % (Auto) 5.9 % (1.0-12.0); Neutrophils % (Auto) 60.9 % (38.0-78.0); Platelet Count 353 K/mcL (140-440); RBC 3.70 M/mcL (4.63-6.08); WBC 8.0 K/mcL (4.5-11.0)
[2025-06-08] MEDS: IBUPROFEN 600 MG TABLET PO PRN (11:38)
[2025-06-08] MEDS: ERTAPENEM 1 GM in 0.9 % SODIUM CHLORIDE 50 ML IV SCH (11:39)
[2025-06-08] MEDS: ALTEPLASE 2 MG VIAL IV PRN (11:39)
[2025-06-08 12:01] VITALS: TEMP 97.1
[2025-06-08] MEDS: VANCOMYCIN 1,000 MG in 0.9 % SODIUM CHLORIDE 250 ML IV SCH (12:46)
== END 2025-06-08 15:33 | DRG 982 ==
LOC: ED 16:56 → ICU 06-02 01:00 → MEDSUR 06-05 13:55
PROVIDERS: ADMIT Student in an Organized Health Care Education/Training Program; ATTEND Student in an Organized Health Care Education/Training Program

== ENCOUNTER 2025-08-03 17:09 | Inpatient (IN) ==
[2025-08-03] MEDS ORDERED: IOPAMIDOL 100 ML BOTTLE IV ONE (17:10)
[2025-08-03] MEDS: fentaNYL 100 MCG/2 ML VIAL IV ONE ×3 (17:29→20:35)
[2025-08-03] MEDS: fentaNYL 100 MCG/2 ML VIAL ONE (17:30)
[2025-08-03] MEDS: 0.9 % SODIUM CHLORIDE 1,000 ML IV ONE ×2 (17:31→18:03)
[2025-08-03] MEDS: ACETAMINOPHEN 1,000 MG/100 ML BAG IV ONE (18:15)
[2025-08-03 18:31] LABS: Basophils # (Auto) 0.03 K/mcL (0.00-0.30); Basophils % (Auto) 0.2 % (0.0-2.0); Eosinophils # (Auto) 0.06 K/mcL (0.00-0.70); Eosinophils % (Auto) 0.3 % (0.0-7.0); Hematocrit 31.3 % (40.1-51.0); Hemoglobin 10.0 g/dL (13.7-17.5); Lymphocytes # (Auto) 1.03 K/mcL (1.50-4.80); Lymphocytes % (Auto) 5.4 % (15.5-49.0); Mean Corpuscular HGB Conc 31.9 g/dL (31.0-36.0); Monocytes # (Auto) 0.74 K/mcL (0.10-0.90); Monocytes % (Auto) 3.9 % (1.0-12.0); Neutrophils % (Auto) 88.8 % (38.0-78.0); Platelet Count 224 K/mcL (140-440); RBC 3.38 M/mcL (4.63-6.08); WBC 19.2 K/mcL (4.5-11.0)
[2025-08-03 18:46] LABS: Beta Hydroxybutyrate 2.62 mmol/L (<0.27); Phosphorous 2.6 mg/dL (2.5-4.5)
[2025-08-03] MEDS: 0.9 % SODIUM CHLORIDE 500 ML IV ONE (18:49)
[2025-08-03 18:50] LABS: ALT/SGPT 32 U/L (<40); AST/SGOT 33 U/L (<40); Albumin 2.8 gm/dL (3.2-5.2); Albumin/Globulin Ratio 0.7 (1.0-2.3); Alkaline Phosphatase 227 U/L (39-117); Anion Gap 16.0 (8.0-16.0); Bilirubin,Total 0.8 mg/dL (0.1-1.0); Blood Urea Nitrogen 22 mg/dL (6-20); Calcium 8.5 mg/dL (8.6-10.4); Carbon Dioxide 21 mmol/L (22-30); Chloride 93 mmol/L (96-108); Globulin 4.3 gm/dL (2.2-3.7); Glucose 589 mg/dL (70-105); Potassium 4.6 mmol/L (3.3-5.1); Sodium 130 mmol/L (133-145)
[2025-08-03 19:03] LABS: Bacteria,Urine 0 /hpf (0); Bilirubin,Urine NEGATIVE (Negative); Color,Urine LT. YELLOW; Glucose,Urine (UA) >=1000 mg/dL (Negative); Ketones,Urine 15 mg/dL (Negative); Leukocyte Esterase,Urine NEGATIVE /uL (Negative); PH,Urine 6.0 (5.0-9.0); Protein,Urine NEGATIVE (Negative); Specific Gravity,Urine <= 1.005 (1.000-1.035); Urobilinogen,Urine 0.2 mg/dL
[2025-08-03] MEDS: INSULIN LISPRO 1 UNIT/0.01 ML UNIT SQ ONE (19:21)
[2025-08-03] MEDS: LIDOCAINE 5 GM CREAM.TOP TOPICAL ONE (19:39)
[2025-08-03] MEDS ORDERED: VANCOMYCIN PER PHARMACY IV SCH (20:53)
[2025-08-03] MEDS ORDERED: POTASSIUM CHLORIDE 20 MEQ TABLET PO PRN ×2 (20:53)
[2025-08-03] MEDS ORDERED: POTASSIUM CHLORIDE 40 MEQ in DEXTROSE 5% IN WATER 500 ML IV PRN (20:53)
[2025-08-03] MEDS ORDERED: ONDANSETRON 4 MG/2 ML VIAL IV PRN (20:53)
[2025-08-03] MEDS ORDERED: IPRATROPIUM/ALBUTEROL 3 ML AMPUL.NEB NEB PRN (20:53)
[2025-08-03] MEDS ORDERED: METOCLOPRAMIDE 10 MG/2 ML VIAL IV PRN (20:53)
[2025-08-03] MEDS ORDERED: MAGNESIUM SULFATE 2 GM/50 ML BAG IV PRN (20:53)
[2025-08-03] MEDS ORDERED: SENNOSIDES 1 TABLET PO PRN (20:53)
[2025-08-03] MEDS ORDERED: POLYETHYLENE GLYCOL 3350 17 GM PACKET PO PRN (20:53)
[2025-08-03] MEDS: 0.9 % SODIUM CHLORIDE 1,000 ML IV SCH (21:10)
[2025-08-03] MEDS ORDERED: CLINDAMYCIN IN 0.9 % SOD CHLOR 900 MG/50 ML BAG IV SCH (21:15)
[2025-08-03] MEDS: INSULIN REGULAR, HUMAN 50 UNIT in 0.9 % SODIUM CHLORIDE 99.5 ML IV SCH (21:24)
[2025-08-03] MEDS: DOCUSATE SODIUM 100 MG CAPSULE PO SCH (21:25)
[2025-08-03] MEDS: HEPARIN 5,000 UNIT/ML VIAL SQ SCH (21:52)
[2025-08-03] MEDS: CLINDAMYCIN IN 0.9 % SOD CHLOR 600 MG/50 ML BAG IV SCH (21:55)
[2025-08-03] MEDS: VANCOMYCIN 1,250 MG in 0.9 % SODIUM CHLORIDE 500 ML IV ONE (21:55)
[2025-08-03 22:03] LABS: Barbiturate Screen,Urine None detected; Benzodiazepines Screen,Urine None detected; Fentanyl, Urine Screen None Detected; Opiate Screen,Urine None detected; Oxycodone, Urine Screen None detected; Phencyclidine Screen,Urine None detected
[2025-08-03] MEDS: INSULIN REGULAR, HUMAN 1 UNIT/0.01 ML UNIT IV ONE (22:09)
[2025-08-03] MEDS: PIPERACILLIN SODIUM/TAZOBACTAM 3.375 GM in DEXTROSE 5% IN WATER 50 ML IV ONE (22:16)
[2025-08-03] MEDS: INSULIN REGULAR, HUMAN 1 UNIT/0.01 ML UNIT ONE (22:26)
[2025-08-04] MEDS: DEXTROSE 5%-NS 1,000 ML IV SCH (00:03)
[2025-08-04] MEDS: ACETAMINOPHEN 325 MG TABLET PO PRN (01:08)
[2025-08-04] MEDS: PIPERACILLIN SODIUM/TAZOBACTAM 3.375 GM in DEXTROSE 5% IN WATER 100 ML IV SCH (02:02)
[2025-08-04 05:23] LABS: Basophils # (Auto) 0.03 K/mcL (0.00-0.30); Basophils % (Auto) 0.2 % (0.0-2.0); Eosinophils # (Auto) 0.26 K/mcL (0.00-0.70); Eosinophils % (Auto) 1.4 % (0.0-7.0); Hematocrit 29.0 % (40.1-51.0); Hemoglobin 9.5 g/dL (13.7-17.5); Lymphocytes # (Auto) 1.54 K/mcL (1.50-4.80); Lymphocytes % (Auto) 8.0 % (15.5-49.0); Mean Corpuscular HGB Conc 32.8 g/dL (31.0-36.0); Monocytes # (Auto) 0.98 K/mcL (0.10-0.90); Monocytes % (Auto) 5.1 % (1.0-12.0); Neutrophils % (Auto) 81.2 % (38.0-78.0); Platelet Count 207 K/mcL (140-440); RBC 3.24 M/mcL (4.63-6.08); WBC 19.2 K/mcL (4.5-11.0)
[2025-08-04 05:45] LABS: ALT/SGPT 31 U/L (<40); AST/SGOT 51 U/L (<40); Albumin 2.3 gm/dL (3.2-5.2); Albumin/Globulin Ratio 0.6 (1.0-2.3); Alkaline Phosphatase 194 U/L (39-117); Anion Gap 9.0 (8.0-16.0); Bilirubin,Direct 0.5 mg/dL (<0.3); Bilirubin,Total 0.7 mg/dL (0.1-1.0); Blood Urea Nitrogen 17 mg/dL (6-20); Calcium 8.0 mg/dL (8.6-10.4); Carbon Dioxide 24 mmol/L (22-30); Chloride 99 mmol/L (96-108); Globulin 3.9 gm/dL (2.2-3.7); Glucose 146 mg/dL (70-105); Phosphorous 1.4 mg/dL (2.5-4.5); Potassium 3.7 mmol/L (3.3-5.1); Sodium 132 mmol/L (133-145); Triglycerides 206 mg/dL (<150); Uric Acid 3.6 mg/dL (2.5-8.0)
[2025-08-04] MEDS: INSULIN GLARGINE, HUMAN 1 UNIT/0.01 ML SQ SCH (08:56)
[2025-08-04] MEDS: SODIUM PHOSPHATE 30 MMOL in DEXTROSE 5% IN WATER 500 ML IV ONE (08:56)
[2025-08-04] MEDS: PHOSPHORUS 250 MG TABLET PO SCH (08:56)
[2025-08-04] MEDS: METOPROLOL SUCCINATE 50 MG TAB.XL.24H PO ONE (08:56)
[2025-08-04] MEDS ORDERED: DEXTROSE 50% 50 ML VIAL IV PRN (09:39)
[2025-08-04] MEDS ORDERED: DEXTROSE 31 GM ORAL.SUSP PO PRN (09:39)
[2025-08-04] MEDS: VANCOMYCIN 1,500 MG in 0.9 % SODIUM CHLORIDE 500 ML IV SCH (11:17)
[2025-08-04] MEDS: INSULIN LISPRO 1 UNIT/0.01 ML UNIT SQ SCH (11:23)
[2025-08-05 05:31] LABS: Basophils # (Auto) 0.02 K/mcL (0.00-0.30); Basophils % (Auto) 0.1 % (0.0-2.0); Eosinophils # (Auto) 0.20 K/mcL (0.00-0.70); Eosinophils % (Auto) 1.3 % (0.0-7.0); Hematocrit 28.3 % (40.1-51.0); Hemoglobin 9.0 g/dL (13.7-17.5); Lymphocytes # (Auto) 1.27 K/mcL (1.50-4.80); Lymphocytes % (Auto) 8.1 % (15.5-49.0); Mean Corpuscular HGB Conc 31.8 g/dL (31.0-36.0); Monocytes # (Auto) 0.71 K/mcL (0.10-0.90); Monocytes % (Auto) 4.5 % (1.0-12.0); Neutrophils % (Auto) 84.8 % (38.0-78.0); Platelet Count 192 K/mcL (140-440); RBC 3.09 M/mcL (4.63-6.08); WBC 15.6 K/mcL (4.5-11.0)
[2025-08-05 05:59] LABS: ALT/SGPT 42 U/L (<40); AST/SGOT 84 U/L (<40); Albumin 2.0 gm/dL (3.2-5.2); Albumin/Globulin Ratio 0.5 (1.0-2.3); Alkaline Phosphatase 181 U/L (39-117); Anion Gap 9.0 (8.0-16.0); Bilirubin,Direct 0.7 mg/dL (<0.3); Bilirubin,Total 0.9 mg/dL (0.1-1.0); Blood Urea Nitrogen 15 mg/dL (6-20); Calcium 7.5 mg/dL (8.6-10.4); Carbon Dioxide 22 mmol/L (22-30); Chloride 97 mmol/L (96-108); Globulin 3.9 gm/dL (2.2-3.7); Glucose 165 mg/dL (70-105); Phosphorous 2.1 mg/dL (2.5-4.5); Potassium 3.6 mmol/L (3.3-5.1); Sodium 128 mmol/L (133-145); Triglycerides 194 mg/dL (<150); Uric Acid 2.3 mg/dL (2.5-8.0)
[2025-08-05] MEDS: INSULIN GLARGINE, HUMAN 1 UNIT/0.01 ML SQ SCH (09:21)
[2025-08-05] MEDS: PHOSPHORUS 250 MG TABLET PO SCH (09:21)
[2025-08-05] MEDS: SODIUM CHLORIDE 1 GM TABLET PO SCH (09:21)
[2025-08-05] MEDS: MEROPENEM 1 GM in 0.9 % SODIUM CHLORIDE 50 ML IV SCH (14:12)
[2025-08-06] MEDS: 0.9 % SODIUM CHLORIDE 10 ML SYRINGE IV SCH (05:20)
[2025-08-06 06:02] LABS: Basophils # (Auto) 0.03 K/mcL (0.00-0.30); Basophils % (Auto) 0.2 % (0.0-2.0); Eosinophils # (Auto) 0.15 K/mcL (0.00-0.70); Eosinophils % (Auto) 1.0 % (0.0-7.0); Hematocrit 25.5 % (40.1-51.0); Hemoglobin 8.3 g/dL (13.7-17.5); Lymphocytes # (Auto) 1.47 K/mcL (1.50-4.80); Lymphocytes % (Auto) 9.6 % (15.5-49.0); Mean Corpuscular HGB Conc 32.5 g/dL (31.0-36.0); Monocytes # (Auto) 0.69 K/mcL (0.10-0.90); Monocytes % (Auto) 4.5 % (1.0-12.0); Neutrophils % (Auto) 83.1 % (38.0-78.0); Platelet Count 209 K/mcL (140-440); RBC 2.82 M/mcL (4.63-6.08); WBC 15.4 K/mcL (4.5-11.0)
[2025-08-06 06:29] LABS: ALT/SGPT 44 U/L (<40); AST/SGOT 64 U/L (<40); Albumin 2.0 gm/dL (3.2-5.2); Albumin/Globulin Ratio 0.5 (1.0-2.3); Alkaline Phosphatase 215 U/L (39-117); Anion Gap 6.0 (8.0-16.0); Bilirubin,Direct 0.6 mg/dL (<0.3); Bilirubin,Total 0.8 mg/dL (0.1-1.0); Blood Urea Nitrogen 16 mg/dL (6-20); Calcium 7.7 mg/dL (8.6-10.4); Carbon Dioxide 25 mmol/L (22-30); Chloride 99 mmol/L (96-108); Globulin 4.3 gm/dL (2.2-3.7); Glucose 193 mg/dL (70-105); Phosphorous 2.3 mg/dL (2.5-4.5); Potassium 3.9 mmol/L (3.3-5.1); Sodium 130 mmol/L (133-145); Triglycerides 216 mg/dL (<150); Uric Acid 2.6 mg/dL (2.5-8.0)
[2025-08-06] MEDS ORDERED: fentaNYL 100 MCG/2 ML VIAL ONE ×2 (07:32→08:48)
[2025-08-06] MEDS ORDERED: PROPOFOL 200 MG/20 ML VIAL IV ONE (07:32)
[2025-08-06] MEDS ORDERED: DEXAMETHASONE 10 MG/ML VIAL ONE (07:34)
[2025-08-06] MEDS ORDERED: ONDANSETRON 4 MG/2 ML VIAL ONE (07:34)
[2025-08-06] MEDS ORDERED: GLYCOPYRROLATE 0.2 MG/ML VIAL IV ONE (07:34)
[2025-08-06] MEDS ORDERED: LIDOCAINE 2% PF 5 ML VIAL ONE (07:34)
[2025-08-06] MEDS ORDERED: MAGNESIUM SULFATE 2 GM/50 ML BAG IV ONE (07:42)
[2025-08-06] MEDS ORDERED: FAMOTIDINE/PF 20 MG/2 ML VIAL IV ONE (07:42)
[2025-08-06] MEDS: ceFAZolin 2 GM in DEXTROSE 5% IN WATER 50 ML IV SCH (08:00)
[2025-08-06] MEDS ORDERED: PHENYLephrine 1 MG/10 ML SYRINGE (ANEST) ONE (08:18)
[2025-08-06] MEDS ORDERED: HYDROmorphone 0.5 MG/0.5 ML SYRINGE ONE (08:27)
[2025-08-06] MEDS ORDERED: ROPIVACAINE HCL/PF 30 ML VIAL IJ ONE ×2 (08:37→10:21)
[2025-08-06] MEDS ORDERED: NALOXONE HCL 0.4 MG/ML VIAL IV PRN (09:09)
[2025-08-06] MEDS ORDERED: IPRATROPIUM/ALBUTEROL 3 ML AMPUL.NEB NEB PRN (09:09)
[2025-08-06] MEDS ORDERED: HYDROmorphone 0.5 MG/0.5 ML SYRINGE IV PRN (09:09)
[2025-08-06] MEDS ORDERED: fentaNYL 100 MCG/2 ML VIAL IV PRN (09:09)
[2025-08-06] MEDS ORDERED: MEPERIDINE 25 MG/ML VIAL IV PRN (09:15)
[2025-08-06] MEDS ORDERED: BENZOCAINE/MENTHOL 1 LOZENGE PO PRN ×2 (09:15→09:27)
[2025-08-06] MEDS ORDERED: ONDANSETRON 4 MG/2 ML VIAL IV PRN (09:15)
[2025-08-06] MEDS ORDERED: TRANEXAMIC ACID 1,000 MG/10 ML VIAL ONE (09:17)
[2025-08-06] MEDS ORDERED: MAGNESIUM HYDROXIDE 30 ML ORAL.SUSP PO PRN (09:27)
[2025-08-06] MEDS ORDERED: POLYETHYLENE GLYCOL 3350 17 GM PACKET PO PRN (09:27)
[2025-08-06] MEDS ORDERED: FLEETS ADULT 1 DOSE ENEMA PR PRN (09:27)
[2025-08-06] MEDS ORDERED: ONDANSETRON 4 MG ODT TABLET SL PRN (09:27)
[2025-08-06] MEDS ORDERED: BISACODYL 10 MG SUPP.RECT PR PRN (09:27)
[2025-08-06] MEDS: ACETAMINOPHEN 1,000 MG/100 ML BAG IV ONE (10:02)
[2025-08-06] MEDS: METHOCARBAMOL 1,000 MG/10 ML VIAL IV PRN (10:03)
[2025-08-06] MEDS: BUPIVACAINE 0.5% 50 ML VIAL IJ ONE (10:11)
[2025-08-06] MEDS: 0.9 % SODIUM CHLORIDE 1,000 ML IV ONE (11:39)
[2025-08-06] MEDS: ASPIRIN 81 MG TAB.CHEW PO SCH (20:30)
[2025-08-06] MEDS: SENNOSIDES 1 TABLET PO SCH (20:31)
[2025-08-06] MEDS: DOCUSATE SODIUM 100 MG CAPSULE PO SCH (20:31)
[2025-08-06] MEDS: INSULIN GLARGINE, HUMAN 1 UNIT/0.01 ML SQ ONE ×2 (22:47→22:55)
[2025-08-07 07:14] LABS: Basophils # (Auto) 0.01 K/mcL (0.00-0.30); Basophils % (Auto) 0.1 % (0.0-2.0); Eosinophils # (Auto) 0.01 K/mcL (0.00-0.70); Eosinophils % (Auto) 0.1 % (0.0-7.0); Hematocrit 29.8 % (40.1-51.0); Hemoglobin 9.4 g/dL (13.7-17.5); Lymphocytes # (Auto) 1.14 K/mcL (1.50-4.80); Lymphocytes % (Auto) 7.9 % (15.5-49.0); Mean Corpuscular HGB Conc 31.5 g/dL (31.0-36.0); Monocytes # (Auto) 0.48 K/mcL (0.10-0.90); Monocytes % (Auto) 3.3 % (1.0-12.0); Neutrophils % (Auto) 87.8 % (38.0-78.0); Platelet Count 237 K/mcL (140-440); RBC 3.23 M/mcL (4.63-6.08); WBC 14.4 K/mcL (4.5-11.0)
[2025-08-07 07:16] LABS: ALT/SGPT 33 U/L (<40); AST/SGOT 39 U/L (<40); Albumin 2.1 gm/dL (3.2-5.2); Albumin/Globulin Ratio 0.4 (1.0-2.3); Alkaline Phosphatase 203 U/L (39-117); Anion Gap 7.0 (8.0-16.0); Bilirubin,Total 0.5 mg/dL (0.1-1.0); Blood Urea Nitrogen 23 mg/dL (6-20); Calcium 7.5 mg/dL (8.6-10.4); Carbon Dioxide 24 mmol/L (22-30); Chloride 96 mmol/L (96-108); Globulin 4.9 gm/dL (2.2-3.7); Glucose 474 mg/dL (70-105); Potassium 5.2 mmol/L (3.3-5.1); Sodium 127 mmol/L (133-145)
[2025-08-07] MEDS: INSULIN LISPRO 1 UNIT/0.01 ML UNIT SQ SCH (07:51)
[2025-08-07] MEDS: INSULIN GLARGINE, HUMAN 1 UNIT/0.01 ML SQ SCH (09:19)
[2025-08-07] MEDS: glipiZIDE 5 MG TAB.XL.24H PO SCH (10:00)
[2025-08-07] MEDS: VANCOMYCIN 1,250 MG in 0.9 % SODIUM CHLORIDE 500 ML IV SCH (11:21)
[2025-08-07] MEDS: GABAPENTIN 300 MG CAPSULE PO SCH (15:07)
[2025-08-07] MEDS: LACTOBACILLUS 1 CAPSULE PO SCH (20:51)
[2025-08-07] MEDS: TAMSULOSIN 0.4 MG CAPSULE PO SCH (20:53)
[2025-08-07] MEDS: NITROGLYCERIN 0.4 MG TAB.SUBL SL PRN (23:03)
[2025-08-07] MEDS: NITROGLYCERIN 0.4 MG TAB.SUBL SL ONE ×2 (23:07)
[2025-08-08] MEDS: NITROGLYCERIN 0.4 MG TAB.SUBL SL ONE ×2 (00:11)
[2025-08-08] MEDS ORDERED: IOPAMIDOL 100 ML BOTTLE IV ONE ×2 (00:31→15:13)
[2025-08-08 05:50] LABS: Basophils # (Auto) 0.02 K/mcL (0.00-0.30); Basophils % (Auto) 0.2 % (0.0-2.0); Eosinophils # (Auto) 0.09 K/mcL (0.00-0.70); Eosinophils % (Auto) 0.8 % (0.0-7.0); Hematocrit 27.8 % (40.1-51.0); Hemoglobin 8.9 g/dL (13.7-17.5); Lymphocytes # (Auto) 1.86 K/mcL (1.50-4.80); Lymphocytes % (Auto) 17.3 % (15.5-49.0); Mean Corpuscular HGB Conc 32.0 g/dL (31.0-36.0); Monocytes # (Auto) 0.51 K/mcL (0.10-0.90); Monocytes % (Auto) 4.7 % (1.0-12.0); Neutrophils % (Auto) 76.3 % (38.0-78.0); Platelet Count 264 K/mcL (140-440); RBC 3.00 M/mcL (4.63-6.08); WBC 10.8 K/mcL (4.5-11.0)
[2025-08-08 06:10] LABS: ALT/SGPT 51 U/L (<40); AST/SGOT 89 U/L (<40); Albumin 2.2 gm/dL (3.2-5.2); Albumin/Globulin Ratio 0.5 (1.0-2.3); Alkaline Phosphatase 189 U/L (39-117); Anion Gap 5.0 (8.0-16.0); Bilirubin,Total 0.4 mg/dL (0.1-1.0); Blood Urea Nitrogen 25 mg/dL (6-20); Calcium 7.6 mg/dL (8.6-10.4); Carbon Dioxide 27 mmol/L (22-30); Chloride 98 mmol/L (96-108); Globulin 4.8 gm/dL (2.2-3.7); Glucose 68 mg/dL (70-105); Potassium 4.2 mmol/L (3.3-5.1); Sodium 130 mmol/L (133-145)
[2025-08-08] MEDS: INSULIN GLARGINE, HUMAN 1 UNIT/0.01 ML SQ SCH (12:02)
[2025-08-08] MEDS: CLINDAMYCIN IN 0.9 % SOD CHLOR 600 MG/50 ML BAG IV SCH ×2 (12:04→12:20)
[2025-08-08 16:21] VITALS: TEMP 97.8; O2SAT 96
[2025-08-09] MEDS ORDERED: VANCOMYCIN 1,000 MG in 0.9 % SODIUM CHLORIDE 250 ML IV SCH (09:00)
== END 2025-08-08 18:55 | disposition short-term general hospital (02) | DRG 239 ==
LOC: ED 17:09 → ICU 20:48 → MEDSUR 08-05 15:46
PROVIDERS: ADMIT Internal Medicine; ATTEND Internal Medicine